=== PATIENT | female | born 1950 | race Caucasian/White ===

== ENCOUNTER → 2017-06-09 | Outpatient (CLI) | payer OTHER ==
[~2017-06-09] MED LIST: ABAT250V; ALBU90OI INH; ALBU90OI6 INH; ALBU90OI61 INH; ARIP10 PO; ATEN25 PO; ATEN50 PO; AZIT250 PO; Abilify5 MG PO; BONE DENSITY C1 EACH PO; BONE MEAL PO; Bactrim Ds Tab1 EACH PO; CALCIUM PO; CEPH500 PO; CLARITIN10 MG PO; CYCL10 PO; DIPATR PO; DULO30 PO; ENOX40I SC; ERGO400 PO; ERGO50000 PO; ETOD400 PO; FAMO20 PO; FLUO25TC TOP; FLUSAL2505 IH; FLUSAL2505 INH; GABA300 PO; GLUC500 PO; HYDACE5 PO; HYDACE5325 PO; HYDHCL10 PO; IMIP50 PO; LEVFLO500 PO; LISHYD1012 PO; LORA10 PO; LORA10ER PO; LORATADINE PO; MELO7.5 PO; MUPI2TC TOP; Magnesium500 M1 PO; Mobic15 MG PO; NAPR500 PO; NYST100SU MT; NYSTATIN PO; OXYACE5T PO; OXYB5 PO; Omeprazole20 M1 PO; PROM25 PO; RANI150; SALONPAS PATCH1 EACH TOP; SERT50 PO; VITAMIN D PO; VITAMIN D5000 UNIT PO; ZESTORETIC 20-121 EA PO; Zofran Odt8 MG SL
[2017-06-09 16:58] LABS: Creatinine, Urine Random 54.1 mg/dL (27.00-270.00); Protein, Urine Random 13.4 mg/dL (0.0-11.9)
== END | disposition home or self-care (01) ==
LOC: OLS 08:45
PROVIDERS: Internal Medicine
DX: E87.1 Hypo-osmolality and hyponatremia (principal)
CPT/HCPCS: 82570; 83935; 84156; 84300

== ENCOUNTER 2017-07-18 00:24 | Day surgery (SDC) | payer OTHER ==
[~2017-07-18 00:24] MED LIST changes: -Magnesium500 M1 PO
== END 2017-07-18 09:46 | disposition home or self-care (01) ==
LOC: ATC 00:24
DX: E87.1 Hypo-osmolality and hyponatremia (principal); E27.40 Unspecified adrenocortical insufficiency; I10 Essential (primary) hypertension; J45.909 Unspecified asthma, uncomplicated; F17.210 Nicotine dependence, cigarettes, uncomplicated
CPT/HCPCS: 36415; 80400; 82533; 96372; J0834

== ENCOUNTER 2018-06-22 12:48 | Inpatient (IN) | payer OTHER ==
[~2018-06-22] VITALS: Ht 170.2 cm; Wt 91.2 kg
[~2018-06-22 12:48] MED LIST changes: +Aspercreme 1035.4 GM TOP; +CHOL10002 PO; +Cyclobenzaprine5 MG PO; -ERGO400 PO; +FISH OIL 1,0001 EAC1 PO; +FOLI1 PO; +LISI20 PO; -LORATADINE PO; +Magnesium500 M1 PO; +NYST100000 SS; +POTASSIUM PO; +SALM50IP INH; +TRIA15CR3 TOP; +VITAMIN B122500 MC1 PO
[2018-06-22 13:22] LABS: BASOPHILS ABSOLUTE AUTO 0.08 K/mm3 (0.00-0.23); BASOPHILS PERCENT AUTO 0 % (0-2); Hematocrit 41.7 % (33.0-51.0); Hemoglobin 13.8 g/dL (11.5-16.0); LYMPHOCYTES ABSOLUTE AUTO 0.86 K/mm3 (0.84-5.20); LYMPHOCYTES PERCENT AUTO 4 % (21-46); MONOCYTES ABSOLUTE AUTO 0.56 K/mm3 (0.16-1.47); MONOCYTES PERCENT AUTO 3 % (4-13); Mean Corpuscular HGB 29.6 pg (26.0-34.0); Mean Corpuscular HGB Conc 33.1 g/dL (31.5-36.5); Mean Corpuscular Volume 90 fL (80-100); Mean Platelet Volume 9.8 fL (9.1-12.4); Platelet Count 445 K/mm3 (150-400); RDW Coefficient Variation 14.4 % (11.7-14.2); RDW Standard Deviation 47.5 fL (35.1-46.3); Red Blood Cell Count 4.66 M/mm3 (3.80-5.20); White Blood Cell Count 21.81 K/mm3 (4.00-11.30)
[2018-06-22 13:39] LABS: Alanine Aminotransfer (ALT/SGP 14 U/L (12-78); Albumin, Blood 2.2 g/dL (3.4-5.0); Albumin/Globulin Ratio 0.4 (0.8-1.8); Alk Phos 159 U/L (50-136); Anion Gap 10 mmol/L (6-16); Aspartate Aminotrans (AST/SGOT 15 U/L (12-37); Bilirubin, Total 0.6 mg/dL (0.1-1.0); Blood Urea Nitrogen 40 mg/dL (8-24); Bun/Creatinine Ratio 55.5 (12.0-20.0); CO2, Blood 25 mmol/L (21-32); Calcium, Blood 9.7 mg/dL (8.5-10.1); Chloride, Blood 100 mmol/L (98-108); Creatinine, Blood 0.72 mg/dL (0.40-1.00); Globulin, Blood 5.7 g/dL (2.2-4.0); Glomerular Filtration Rate >60 (60-); Glucose, Blood 137 mg/dL (70-99); Potassium, Blood 3.8 mmol/L (3.5-5.5); Sodium, Blood 135 mmol/L (136-145); Total Protein, Blood 7.9 g/dL (6.4-8.2)
[2018-06-22 14:22] LABS: EOSINOPHILS ABSOLUTE AUTO 0.01 K/mm3 (0.00-0.68); EOSINOPHILS PERCENT AUTO 0 % (0-6); IMMATURE GRAN ABSOLUTE AUTO 0.16 K/mm3 (0.00-0.10); IMMATURE GRAN PERCENT AUTO 1 % (0-1); NEUTROPHILS ABSOLUTE AUTO 20.14 K/mm3 (1.96-9.15); NEUTROPHILS PERCENT AUTO 92 % (41-73)
[2018-06-22 16:24] LABS: Source, Urine Clean Catch
[2018-06-22 16:38] LABS: Bilirubin, Urine Neg (Neg); Blood, Urine 3+ (Neg); Glucose Qualitative, Urine Neg (Neg); Ketones, Urine 3+ (Neg); Leukocyte Esterase, Urine Neg (Neg); Nitrite, Urine Neg (Neg); Protein, Urine 3+ (Neg); Urobilinogen, Urine 2+ (Normal)
[2018-06-22 16:54] LABS: U Amphetamine Screen DETECTED; U Barbituate Screen Not Detected; U Benzodiazapine Screen Not Detected; U Buprenorphine Screen Not Detected; U Cannabinoids Screen Not Detected; U Cocaine Screen Not Detected; U Methadone Screen Not Detected; U Methamphetamine Screen DETECTED; U Opiates Screen Not Detected; U Oxycodone Screen Not Detected; U Phencyclidine Screen Not Detected; U Propoxyphene Screen Not Detected
[2018-06-22 17:07] LABS: Color, Urine Amber (P-Yellow)
[2018-06-22 17:08] LABS: Appearance, Urine Clear (Clear)
[2018-06-22 17:09] LABS: Amorphous Mod (0-Heavy); Bacteria Mod /hpf; Mucus Mod (0-Heavy); Squamous Epithelial Cells Mod /hpf (Few); White Blood Cells, Urine 0-2 /hpf (0-5)
[2018-06-22 18:35] LABS: Thyroid Stimulating Hormone 0.56 uIU/mL (0.360-4.800)
[2018-06-22] MEDS ORDERED: ATEN25 PO (19:39)
[2018-06-22] MEDS ORDERED: Advil200 M1 PO (19:44)
[2018-06-22] MEDS ORDERED: Hydrocortiso453.6 G1 TOP (19:53)
[2018-06-22] MEDS ORDERED: KETO15TC TOP (19:54)
[2018-06-22] MEDS ORDERED: METF500 PO (19:55)
[2018-06-22] MEDS ORDERED: Bupropion Xl150 MG PO (19:56)
[2018-06-22 21:19] LABS: CPK Creatine Kinase 53 U/L (26-193); Creatine Kinase MB 2.4 ng/mL (0.0-3.6); Creatine Kinase MB Index 4.5 (0.0-4.0); Ethanol (Alcohol), Blood, Med <3 mg/dL; Troponin I 0.165 ng/mL (0.000-0.040)
--- NOTE | 2018-06-22 21:25 | NUR ---
PT ARRIVED TO ICU 15 FROM ER. PT IS UNRESPONSIVE. KIND OF GRUNTS TO STERNAL RUB. GAZE TO THE LEFT. PT GRUNTS WITH EXPIRATIONS WHICH GETS LONGER WITH EACH EXPIRATION THEN AFTER ABOUT 10 BREATHS PT WILL BECOME APNEIC FOR ABOUT 10 SECS. FROM THE REPORT I GOT FROM ER THIS IS NOT NEW FOR THE PT SINCE ARRIVING TO ER THIS AFTERNOON. PT DOES HAVE A GAG.
--- NOTE | 2018-06-22 22:05 | NUR ---
CALLED DR. MONTENEGRO TO INFORM HER OF IRREG RESP PATTERN, L GAZE, HTN, HR, SM RUN OF VTACH, LACTIC ACID OF 3.1. NEW ORDERS RECEIVED. FROM REPORT I GOT FROM ER IT DOES NOT SOUND LIKE HER MENTAL STATUS HAS CHANGED.
[2018-06-22 22:51] LABS: PO2 Arterial 83.5 mmHg (80-100); pH Blood Arterial 7.57 (7.35-7.45)
--- NOTE | 2018-06-23 00:34 | NUR ---
CALLED DR. RICHARDS ABOUT PT IRREGULAR RESP, HTN, RUNS OF VTACH, AND HR SUSTAINING 130'S-150'S. DR. RICHARDS CAME AND LOOKED AT PT AND ORDERED SOME KCL AND MG. DR. RICHARDS SAID TO KEEP BP ELEVATED FOR NOW UP TO 220 SBP BEFORE CALLING HIM FOR BP MEDS. HE WANTS PERMISIVE HTN BECAUSE THERE IS A CHANCE SHE HAD A STROKE. MRI IS TO BE DONE. WAS ABLE TO GET SOME HEALTH HX FROM SON TALI. THIS IS THE ONLY REACHABLE FAMILY MEMBER RIGHT NOW. THERE IS ANOTHER SON IN [place] THAT HAS NOT BEEN REACHABLE PER TALI.
[2018-06-23] MEDS ORDERED: CLOB.05TO TOP (02:41)
[2018-06-23 03:30] LABS: Hematocrit 38.7 % (33.0-51.0); Hemoglobin 12.7 g/dL (11.5-16.0); Mean Corpuscular HGB 29.5 pg (26.0-34.0); Mean Corpuscular HGB Conc 32.8 g/dL (31.5-36.5); Mean Corpuscular Volume 90 fL (80-100); Mean Platelet Volume 9.4 fL (9.1-12.4); Platelet Count 374 K/mm3 (150-400); RDW Coefficient Variation 14.5 % (11.7-14.2); RDW Standard Deviation 47.9 fL (35.1-46.3); White Blood Cell Count 20.22 K/mm3 (4.00-11.30)
[2018-06-23 03:52] LABS: Alanine Aminotransfer (ALT/SGP 15 U/L (12-78); Albumin, Blood 1.9 g/dL (3.4-5.0); Albumin/Globulin Ratio 0.4 (0.8-1.8); Alk Phos 151 U/L (50-136); Anion Gap 12 mmol/L (6-16); Aspartate Aminotrans (AST/SGOT 22 U/L (12-37); Bilirubin, Total 0.9 mg/dL (0.1-1.0); Blood Urea Nitrogen 32 mg/dL (8-24); Bun/Creatinine Ratio 59.4 (12.0-20.0); CHOL/HDL RATIO 11.7; CO2, Blood 20 mmol/L (21-32); Calcium, Blood 8.8 mg/dL (8.5-10.1); Chloride, Blood 105 mmol/L (98-108); Cholesterol 117 mg/dL (50-200); Creatinine, Blood 0.54 mg/dL (0.40-1.00); Glomerular Filtration Rate >60 (60-); Glucose, Blood 128 mg/dL (70-99); HDL Cholesterol 10 mg/dL (>39); LDL/HDL RATIO 7.2; Low Density Lipoprotein Chol 72 mg/dL (0-110); Magnesium, Blood 2.5 mg/dL (1.6-2.4); Phosphorus, Blood 1.8 mg/dL (2.5-4.9); Potassium, Blood 3.2 mmol/L (3.5-5.5); Sodium, Blood 137 mmol/L (136-145); Total Protein, Blood 6.9 g/dL (6.4-8.2); Triglycerides 177 mg/dL (30-160); Very Low Density Lipoprot Chol 35 mg/dL (6-32)
--- NOTE | 2018-06-23 05:50 | NUR ---
SUMMARY PT CONTINUES TO BE UNRESPONSIVE. GAZE TO THE LEFT. PT WILL BITE DOWN ON MOUTH SWAB AND FLINCHES WITH STERNAL RUB. CONTINUES WITH IRREG RESP WITH GRUNTING ON EXHALATION. GRUNTING GETS LONGER AND LONGER WITH EXHALE THEN PT BECOMES APNEIC ABOUT EVERY 10 BREATHS. SHE HAS DONE THIS SINCE ARRIVAL TO ICU AT 2124. CALLED TWO DIFFERENT HOSPITALISTS ABOUT CONCERNS DURING THE NIGHT. DR. RICHARDS CAME TO BEDSIDE TO EVAL PT. CALLED DR. RICHARDS AGAIN THIS AM TO INFORM HIM OF LOW POTASSIUM AND PHOS. KCL WAS NOT INFUSED WHEN THOSE LABS WERE DRAWN SO HE WANTS A REPEAT AT 0800 WHEN KCL HAS COMPLETED. NO ORDERS FOR PHOS. ALLOWING HTN AT THIS POINT PER DR. RICHARDS FOR POSSIBLE CVA SO METOPROLOL WAS PUT ON HOLD. HR CONTINUES TO BE 120'S-150'S. SPOKE WITH SON TALI ONCE DURING THE NIGHT AND HE SAID HE WILL MAKE ARRANGEMENTS TO COME SEE HIS MOM. THIS IS THE ONLY FAMILY I HAVE HEARD FROM [facility].
[2018-06-23 08:50] LABS: Anion Gap 10 mmol/L (6-16); Blood Urea Nitrogen 29 mg/dL (8-24); Bun/Creatinine Ratio 54.6 (12.0-20.0); CO2, Blood 20 mmol/L (21-32); Chloride, Blood 105 mmol/L (98-108); Creatinine, Blood 0.53 mg/dL (0.40-1.00); Glomerular Filtration Rate >60 (60-); Glucose, Blood 132 mg/dL (70-99); Potassium, Blood 3.6 mmol/L (3.5-5.5); Sodium, Blood 135 mmol/L (136-145)
--- NOTE | 2018-06-23 11:59 | NUR ---
Katarzyna is alone in room. She grunts with breaths and is not responsive to voice or touch. Her eyes are open and staring upwards to the left. Per chart, she is Restorationist, so I prayed for her at bedside. Also per ED RN notes, Katarzyna has a son and DIL out of state. They informed staff there is not blood family locally. I will remain available to pt and family.
--- NOTE | 2018-06-23 15:25 | NUR ---
TOOK PATIENT TO MRI FOR A MRI OF THE BRAIN. AWAITING MRI RESULTS.
--- NOTE | 2018-06-23 17:23 | NUR ---
NURSING SUMMARY LEFT SIDED GAZE WITH LEFT NECK/UPPER BODY HYPERTONIA, MOANS AND MAKES GRUNTING NOISES, DOES NOT FOLLOW COMMANDS, GROSS ARM AND LEG MOVEMENTS. IRREGULAR RESPPIRATIONS, RR 30'S, SATS REMAINING 96% AND GREATER ON ROOM AIR. SINUS TACHYCARDIA ON THE MONITOR, HR 110'S - 130'S, WITH PAC'S. HYPERTENSIVE. ATTENDS IN PLACE, INCONTINENT OF STOOL X 2, SMEARS. INCONTINENT OF URINE, OLMSTEAD IN PLACE WITH MILANA URINE, ADEQUATE OUTPUT. 1/2 NS INFUSING AT 75 ML/HR TO LEFT AC IV. PT ALSO HAS A RIGHT UPPER ARM SALINE LOCK. NPO, SPEECH THERAPY UNABLE TO PERFORM SWALLOW EVALUATION DUE TO PT NOT FOLLOWING COMMANDS. LEFT LEG REDNESS, PANNUS REDNESS, MULTIPLE BRUISES THROUGHOUT. MRI HEAD DONE, AWAITING RESULTS.
--- NOTE | 2018-06-23 17:36 | NUR ---
FAMILY/FRIEND CONTACT INFORMATION PATIENT HAS TWO SONS, KASHMIR BASILIO AND TALI. KASHMIR IS THE PRIMARY DECSION-MAKER ACCORDING TO TALI, PT'S SIGNIFICANT OTHER - SHARRI EDWARDS, AND HER FRIENDS HEATHER CHAVES AND ARODLO CANELA.KASHMIR AND TALI HAVING DISCUSSIONS ABOUT PT'S CODE STATUS. KASHMIR BASILIO - SON, CELL AND WORK , LIVES IN [place]; TALI - SON, CELL , LIVES IN [place]; SHARRI EDWARDS - SIGNIFICANT OTHER, CELL , LIVES WITH PATIENT; HEATHER CHAVES - NEIGHBOR AND FRIEND, CELL ; AROLDO CANELA - [facility] FRIEND, CELL
--- NOTE | 2018-06-23 17:42 | NUR ---
CONVERSATION WITH PATIENTS SON KASHMIR BASILIO RECEIVED A PHONE CALL FROM KASHMIR BASILIO, PATIENTS OLDEST SON AND DECISION-MAKER. HE LIVES IN [place] AND COULD COME TO [place] IF NEEDED. HE WOULD LIKE TO OBTAIN UPDATES ABOUT HIS MOTHER, TO KNOW WHAT IS GOING ON, SO THAT HE CAN MAKE DECISIONS TO WHETHER TO COME TO [place]. PROVIDED KASHMIR WITH UPDATES ON HIS MOTHER'S CURRENT CONDITION AND OBTAINED HEALTH ADMISSION HISTORY INFORMATION AND ANSWERED QUESTIONS ON THE MRI SCREENING FORM. KASHMIR STATED THAT HE IS WORRIED ABOUT HIS MOTHER'S BOYFRIEND, SHARRI, AND HIS DAUGHTER LIVING WITH HIS MOTHER, STATED, "THEY USE HER FOR HER HOUSE AND MONEY" AND "THEY USE DRUGS." KASHMIR STATED THE FAMILY HAS ATTEMPTED TO CONVINCE THEIR MOTHER TO KICK SHARRI AND HIS DAUGHTER OUT OF THE HOUSE. KASHMIR AND TALI, BROTHER, TO HAVE CONVERSATIONS ABOUT CODE STATUS. KASHMIR STATED THAT HIS BROTHER, TALI, LIVES IN [place] AND WILL LIKELY CALL US. I ADVISED THAT TALI HAD ALREADY CALLED AND WAS TRYING TO GET IN TOUCH WITH HIM BUT DIDN'T HAVE THE PHONE NUMBER. GAVE KASHMIR CESAR'S PHONE NUMBER PER TALI'S REQUEST.
--- NOTE | 2018-06-23 17:52 | NUR ---
CONVERSATION WITH PATIENT'S SON TALI CESAR CALLED TODAY TO CHECK ON HIS MOTHER. THE NIGHT RN TALKED WITH TALI LAST NIGHT TO OBTAIN SOME OF THE PATIENTS HEALTH CARE INFORMATION. TALI STATED THAT KSAHMIR WOULD KNOW MORE ABOUT THAT AND HE WOULD BE THE DECISION-MAKER SHOULD HIS MOTHER NOT BE ABLE TO MAKE HER OWN DECISIONS. TALI STATED HE HAS NOT BEEN ABLE TO GET IN TOUCH WITH HIS BROTHER, KASHMIR. HE ASKED THAT I GIVE KASHMIR HIS TELEPHONE NUMBER IF/WHEN HE CALLS. KASHMIR DID CALL AND TALI'S NUMBER WAS GIVEN TO HIM. TALI WAS TEARFUL ABOUT HIS MOTHER'S CONDITION AND STATED THAT "HER BOYFRIEND IS A PIECE OF SHIT." HE INDICATED THAT THE BOYFRIEND WAS TAKING ADVANTAGE OF HIS MOTHER AND HE HAS HIS DRUG ADDICT DAUGHTER LIVING IN HIS MOTHER'S HOME NOW. TALI STATED HE LAST SAW HIS MOTHER IN AUGUST OF 2017 AND OFTEN ATTEMPTED TO GET HER TO LEAVE THE BOYFRIEND AND MOVE TO [place] WITH HIM. TALI ALSO STATED THAT HIS "MOTHER IS A HYPERCONDRIAC AND WHEN SHE DOESN'T FEEL LIKE THEY PAY ENOUGH ATTENTION TO HER, SHE SHUTS DOWN." PER MY DISCUSSION WITH KASHMIR THIS AFTERNOON, HE HAS HAD THE OPPORTUNITY TO TALK WITH TALI ABOUT THEIR MOTHER AND THEY ARE DISCUSSING CODE STATUS AND POTENTIAL WAYS TO COME TO [place] WHEN/IF NEEDED.
--- NOTE | 2018-06-23 17:59 | NUR ---
CONVERSATION WITH SHARRI EDWARDS, SIGNIFICANT OTHER SHARRI EDWARDS, SIGNIFICANT OTHER, CAME TO BEDSIDE FOR A VISIT. HE STATED PT WAS NOT RESPONSIVE FOR ABOUT 24 HOURS BEFORE SHE WAS BROUGHT TO THE HOSPITAL. HE STATES THEIR NEIGHBOR, HEATHER CHAVES, CALLED EMS. SHARRI STATED HE WAS PICKING UP THE PHONE TO CALL EMS WHEN HEATHER DID IT INSTEAD. HE STATED HE WAS THERE WHEN EMS ARRIVED AT THE HOUSE BUT ALMOND BLANCHER RN ADVISED ME IN REPORT THAT EMS TOLD ED THAT NOBODY WAS AT THE HOME WHEN THEY ARRIVED. SHARRI STATED HE AND HIS DAUGHTER LIVE WITH THE PATIENT. HE STATED HIS DAUGHTER IS AN EX-DRUG ADDICT. HE DENIES USING METH, DENIES THAT THE PATIENT USES METH, AND DENIES THAT HIS DAUGHTER USES METH. PATIENT STAYED AT BEDSIDE FOR APPROX. 30 MINUTES.
--- NOTE | 2018-06-23 18:09 | NUR ---
CONVERSATION WITH AROLDO CANELA, PATIENT'S ORTHODOX FRIEND AROLDO CANELA AND ANOTHER ORTHODOX FRIEND CAME TO VISIT PATIENT TODAY. AROLDO STATED THERE "IS A PROBLEM WITH THE SIGNIFICANT OTHER DEMANDING PATIENT TO DO THINGS FOR HIM AND IS NOT ALWAYS NICE TO PATIENT."
--- NOTE | 2018-06-23 18:12 | NUR ---
DR. CUELLAR AT BEDSIDE FOR EVALUATION.
--- NOTE | 2018-06-23 19:13 | NUR ---
CALLED DR. CUELLAR TO REPORT THAT FRIENDS CAME TO VISIT PT AND STATED PT HAD THE FLU FOR ONE WEEK PRIOR TO ADMISSION WITH COMPLAINTS OF FALLING ASLEEP WHILE FRIENDS WERE TALKING WITH HER, SEVERE NECK AND BACK PAIN WHERE SHE COULD NOT MOVE, AND NAUSEA AND VOMITING. ALSO REPORTED THAT TOOL MAKER RN REPORTED TO ME THAT PT EXPERIENCED A SHORT RUN OF VFIB LAST NIGHT.
--- NOTE | 2018-06-23 23:30 | NUR ---
CARDIAC RHYTHM / DR. RICHARDS COMMUNICATION ANALYSIS OF VARIOUS RHYTHM STRIPS BY YOBANI SILVER RN AND THIS RN REVEALED POSSIBILITY OF PT CONVERTING IN AND OUT OF ATRIAL FIBRILLATION VERSES NORMAL SINUS RHYTHM WITH PAC'S AND PVC'S. HR RAPIDLY CHANGES FROM 90 TO 130'S-140'S AND BACK. P WAVES INCONSISTENT ON MONITOR. DR. RICHARDS UPDATED. REPEAT EKG ORDERED. DR. RICHARDS MENTIONED POSSIBLE REPEAT ECHO DEPENDING ON WHAT PRIMARY DAY SHIFT HOSPITALIST PREFERS. WILL DISCUSS WITH DAY SHIFT RN. DR. RICHARDS AWARE PT IS NOT CURRENTLY ANTICOAGULATED OTHER THAN DVT PROPHY LOVENOX. NO NEW ORDERS.
--- NOTE | 2018-06-24 03:19 | NUR ---
RESPIRATORY/CARDIAC PATTERN PT'S RESPIRATIONS CONTINUE TO BE IRREGULAR. PT ALTERNATES BETWEEN LOUD, GRUNTING, FREQUENT BREATHS TO QUIET, SLOW BREATHS. HR TO 130'S-140'S WITH INCREASED, GRUNTING BREATHS. HR 90'S WITH QUIET, SLOW BREATHS. PATTERN CYCLING CONSTANTLY THROUGHOUT NIGHT.
--- NOTE | 2018-06-24 03:21 | NUR ---
NEURO REASSESSMENT THIS MORNING PT INCREASINGLY RESPONSIVE. PT MOVING HEAD FROM LEFT TO RIGHT SPONTANEOUSLY, BUT DOES CONTINUE TO HAVE A SIGNIFICANT LEFT GAZE MOST TIMES. ARMS STIFF, NO RESPONSE TO PAIN ON ARMS. CONTINUES TO LIFT ARMS WITH STERNUM RUB. TOES POINT UP WHEN TOUCHED ON BOTTOM. DURING ORAL CARE, PT CLOSES MOUTH. INCREASED HEART RATE WITH STIMULATION.
[2018-06-24 03:23] LABS: BASOPHILS ABSOLUTE AUTO 0.05 K/mm3 (0.00-0.23); BASOPHILS PERCENT AUTO 0 % (0-2); EOSINOPHILS ABSOLUTE AUTO 0.11 K/mm3 (0.00-0.68); EOSINOPHILS PERCENT AUTO 1 % (0-6); Hematocrit 37.5 % (33.0-51.0); Hemoglobin 12.1 g/dL (11.5-16.0); IMMATURE GRAN ABSOLUTE AUTO 0.19 K/mm3 (0.00-0.10); IMMATURE GRAN PERCENT AUTO 1 % (0-1); LYMPHOCYTES ABSOLUTE AUTO 2.24 K/mm3 (0.84-5.20); LYMPHOCYTES PERCENT AUTO 14 % (21-46); MONOCYTES ABSOLUTE AUTO 1.77 K/mm3 (0.16-1.47); MONOCYTES PERCENT AUTO 11 % (4-13); Mean Corpuscular HGB 29.2 pg (26.0-34.0); Mean Corpuscular HGB Conc 32.3 g/dL (31.5-36.5); Mean Corpuscular Volume 90 fL (80-100); Mean Platelet Volume 9.7 fL (9.1-12.4); NEUTROPHILS ABSOLUTE AUTO 12.25 K/mm3 (1.96-9.15); NEUTROPHILS PERCENT AUTO 74 % (41-73); Platelet Count 338 K/mm3 (150-400); RDW Coefficient Variation 14.7 % (11.7-14.2); RDW Standard Deviation 49.3 fL (35.1-46.3); Red Blood Cell Count 4.15 M/mm3 (3.80-5.20); White Blood Cell Count 16.61 K/mm3 (4.00-11.30)
[2018-06-24 03:41] LABS: Anion Gap 11 mmol/L (6-16); Blood Urea Nitrogen 26 mg/dL (8-24); Bun/Creatinine Ratio 52.1 (12.0-20.0); CO2, Blood 20 mmol/L (21-32); Calcium, Blood 8.6 mg/dL (8.5-10.1); Chloride, Blood 107 mmol/L (98-108); Glomerular Filtration Rate >60 (60-); Glucose, Blood 118 mg/dL (70-99); Magnesium, Blood 1.6 mg/dL (1.6-2.4); Sodium, Blood 138 mmol/L (136-145)
[2018-06-24 04:51] LABS: PCO2 Arterial 31.4 mmHg (35-45); PO2 Arterial 75.8 mmHg (80-100); pH Blood Arterial 7.46 (7.35-7.45)
--- NOTE | 2018-06-24 05:00 | NUR ---
HEART RATE - METOPROLOL ADMIN HR CONSISTENTLY IN 130'S-140'S, TOUCHING INTO THE 150'S AND 160'S. METOPROLOL ADMIN. AFTER ADMINISTRATION, PT'S HR RETURNED TO PREVIOUSLY DISCUSSED RESPIRATORY/CARDIAC TREND WITH HIGH RATE IN 120'S-130'S. BP CONTINUES TO BE MILDLY ELEVATED.
--- NOTE | 2018-06-24 06:28 | NUR ---
RING REMOVAL PT'S ARMS NOTED TO BE INCREASINGLY SWOLLEN. RINGS ON FINGERS REQUIRING REMOVAL TO PREVENT CUTTING OFF OF CIRCULATION. REMOVAL OF RINGS DIFFICULT REQUIRING MULTIPLE ATTEMPTS BY MULTIPLE RN'S. SEVERAL ABRASIONS NOTED ON FINGERS FROM REMOVAL. BANDAGES PLACED. SEVEN RINGS PLACED IN DENTURE CUP AND PLACED INSIDE PT'S BELONGING BAG WITH HER CLOTHES.
--- NOTE | 2018-06-24 06:48 | NUR ---
SUMMARY SINCE PREVIOUS NOTE, PT CONTINUES TO BE INCREASINGLY ALERT. PT DEMONSTRATING PERIODS WHERE EYES ARE MORE CLOSED AND PT APPEARS TO BE RESTING, AND WITH STIMULATION PT OPENS EYES AND HAS INCREASED GROSS MOVEMENT. CONTINUES TO HAVE SIGNIFICANT LEFT GAZE AND STIFFNESS IN NECK FACING THE LEFT SIDE. WHEN REMOVING RINGS PT WITHDRAWING TO PAIN ON BILAT HANDS. PT CONTINUES WITH RESPIRATORY AND CARDIAC PATTERNS. BP STABLE. PT AFEBRILE. DECREASED URINE OUTPUT THIS SHIFT. KCL INFUSING FOR LOW POTASSIUM THIS MORNING.
--- NOTE | 2018-06-24 07:45 | NUR ---
ASSUMED CARE: PT RESTING IN BED, EYES OPEN, UNRESPONSIVE. BREATHING PATTERN IRREGULAR, MOAN NOTED WITH BREATHS. VSS, TACHYCARDIC IN 120S. NO FURTHER NEEDS AT THIS TIME.
--- NOTE | 2018-06-24 08:08 | NUR ---
NEURO ASSESSMENT REVEALS IRREGULAR BREATHING, MOVES EXTREMITIES WHEN STIMULATED BUT DOES NOT FOLLOW COMMANDS. FEET FLEX WHEN BABINSKI TESTED BUT TOES DO NOT MOVE. PT DOES NOT TRACK WITH EYES BUT STARES OFF, DOES NOT RESPOND WITH NAME OR FOLLOW DIRECTIONS.
--- NOTE | 2018-06-24 08:53 | NUR ---
REPOSITIONED PT. WITH STIMULATION PT BEGAN MOANING MORE OFTEN AND IS NOW INTERMITTENTLY RAISING LEFT ARM IN THE AIR BUT NOT FOLLOW DIRECTIONS; WILL NOT SQUEEZE FINGERS WHEN INSTRUACTED
--- NOTE | 2018-06-24 09:17 | NUR ---
SPOKE WITH PALLIATIVE CARE NURSE MARCUS REGARDING PT'S CURRENT STATUS AND CLINICAL PICTURE. NUMBERS OF FAMILY MEMBERS AND S.O. PROVIDED TO HER FOR DISCUSSIONS ON DECISION MAKING.
--- NOTE | 2018-06-24 10:52 | NUR ---
PALLIATIVE CARE NURSE DISCUSSED PT'S CASE WITH PT'S SONS. ONE SON ON THE WAY FROM [facility]. SONS HAVE INSTRUCTED US NOT TO GIVE INFO TO PT'S S.O. PT HAS BEEN MADE DNR PER FAMILY WISHES. GENERAL MANAGER ORACLE DATA CLOUD AWARE
--- NOTE | 2018-06-24 11:13 | NUR ---
CORRECT CONTACT #'S. OLDEST SON, KASHMIR SAMUEL [phone], SON, TALI SAMUEL AND ISAIAS GIANG - [phone] [place] [phone] SONS REQUEST THAT NO INFORMATION BE PROVIDED TO SO SHARRI UMANA SUMMARY OF ASSESSMENT, MULTIPLE CONVERSATIONS WITH TWO SONS, , RN AND PT ADVOCATE. After dialing #'s listed on chart and finding many disconnected or wrong I was able to reach oldest son, Kashmir, who is in [place]. He is very concerned about his mom and states he and his brother Tali will make themselves available for any decision making or assist as needed. Brother Tali is on his way to the [facility] from [place] and expected here this afternoon. I discussed at [facility] pt's current status and our concerns in wanting to identify a family spokesperson/decision maker and to review her code status today. After conversations with questions answered, Kashmir states he and his brother have spoken and agree that pt should be a DNR. This was relayed to Dr Sandoval and orders obtained/entered for DNR status. Once Tali is here and is able to ask additional questions we will discuss further advanced care issues. I had left a message for son, Tali and received a call back from his , Miriam hightower with a second # that may have better corporate receptionist during their travels. I was able to reach younger son, Tali on that number, posted above. Tali concurrs with his brother re: DNR status. I answered his questions re: his mom's current status. I explained [place] law and [place] policy regarding decision makers for pt's when they are unable to speak for themselves. Tali asks that we not provide information to pt's SO Sharri Umana. He had questions re: who to contact for assist with taking care of his mom's affairs if she remains incapacitated. I discussed this [facility] PT advocate and reivewed CM notes re: APS referral and APD involvement. I will provide additional info to Tali when he arrives. He expects to be here between 2-4 pm today. I let him know Dr would also like to meet with him. RN will notify me when they arrive. Assessment. Pt has eyes open but is nonverbal and unresponsive to verbal or tactile stimuli. She does not appear comfortable but there is no specific indicator of localized or generalized pain. Full update on current status obtained from pt's RN and
--- NOTE | 2018-06-24 11:37 | NUR ---
VAISHNAVI RUTH FROM [facility], [facility] CAME TO ASSESS PT. DAHIANA WAS PROVIDED FOR REFERENCE. AGENT WAS GIVEN PHONE NUMBER OF NEIGHBOR WHO CALLED EMS AND PT'S SON'S NUMBER WELL CHART NOTES.
--- NOTE | 2018-06-24 12:02 | NUR ---
DR CUELLAR IN TO SEE PT. NOTES VITAL SIGNS INCLUDING BP. STATES TO TREAT BP GREATER THAN 190 SBP AND HR GREATER THAN 130S. STATES HE WANTS TO BE NOTIFIED WHEN FAMILY ARRIVES AND IS GOING TO DISCUSS CASE WITH RADIOLOGY TO DETERMINE WHAT CAN BE VIEWED ON SCANS.
--- NOTE | 2018-06-24 14:26 | NUR ---
CALL TO DR CUELLAR BECAUSE PT'S HR IN 140S, NOT RESPONSIVE TO METOPROLOL, BP ELEVATED IN 180S-190S. RR IN 40S-50S. PT ALSO MOANING WITH THIS. ORDER FOR PAIN MEDS RECIEVED. WILL NOTIFY AND PALLIATIVE CARE WHEN FAMILY ARRIVES. CLINIC ASSISTANT AWARE
--- NOTE | 2018-06-24 16:13 | NUR ---
PT'S SON, DAUGHTER IN LAW, DOCTOR ALISA, AND PALLIATIVE CARE NURSE ARE AT BEDSIDE AT THIS TIME.
--- NOTE | 2018-06-24 16:24 | NUR ---
PT'S DAUGHTER IN LAW HAS RINGS THAT WERE REMOVED PER FORESTRY INSTRUCTOR LAST NIGHT
--- NOTE | 2018-06-24 16:55 | NUR ---
Extended Family meeting with , Son-ISAIAS Shine-Miriam. RN also in/out of room towards end of meeting. After meeting with Rl called his brother, Elbert and put him on speaker phone and I repeated the information provided to family and answered questions of all three family members. Current plan, which Dr and family agreed upon is to give Katarzyna another 24 hours of supportive care in the hopes that she will become more awake and responsive. Family is realistic and understand that 's prognosis of 10% chance of regaining baseline function leaves her condition quite quarded. They do not want her life prolonged if she is not improving. Pt is displaying more discomfort and distress than she was this am and has ordered IV MS, which RN gave with good results in alleviating her grunting, groaning with respirations, grimacing and generally looking distressed and painful. This also lowered her HR. explained supportive care being provided and confirmed DNR status. SonElbert is getting the first available plane from [place] to be here to see his mom and assist his brother. Family also asked to identify who would be allowed information and visits. At this time only pt's two sons and Miriam hightower are to be allowed access to visit or information. RN put this in the chart and informed other staff. I passed this on to . Cezar were given [facility] ph#, Card with Senior Financial Reporting Analyst contact from and number for non-emergent [place] Iron [employer]ter's office to request assist with access to pt's home. Information on hotels nearby for lodging provided also. Cezar will be in town until Friday and possibly longer if needed. Palliative care to follow daily for s/s management and assist with advanced care planning as indicated. Family very appreciative of the support and information received today. They expressed feeling shocked and overwhelmed with all the complicating layers of circumstances surrounding pt's current condition. Son has spoken with an program/music director from [employer]D/APS this afternoon. Son appropriately tearful and grieving. He and are problem solving with Elbert's participation also. They appear very healthy in their interactions and very supportive of each other among the three family members.
--- NOTE | 2018-06-24 17:33 | NUR ---
SHIFT SUMMARY: PT'S SON AND DAUGHTER IN LAW AT BEDSIDE. FAMILY HAD MEETING WITH DR CUELLAR AND PALLIATIVE CARE NURSE AND DETERMINED THEY WOULD GIVE HER SUPPORTIVE CARE FOR AT LEAST 1 MORE DAY TO DETERMINE PROGRESS THEN POSSIBLY COMFORT CARE IF NO PROGRESS. LOWER IN SUPERVISOR AWARE. PT HAS BEEN MEDICATED WITH MORPHINE AND APPEARS TO BE MORE COMFORTABLE. RESPIRATIONS IRREGULAR AND PT STILL NOT FOLLOWING INSTRUCTIONS. EYES REMAIN OPEN, NO BLINKING, LUBRICATING EYE DROPS APPLIED. NO FURTHER NEEDS AT THIS TIME. CALL LIGHT IN REACH AND FAMILY AWARE OF HOW TO USE IT
--- NOTE | 2018-06-24 19:15 | NUR ---
ASSUMING CARE OF PT AT THIS TIME. PT REPORT RECEIVED AT BEDSIDE WITH OFFGOING NURSE, ARIELA LLAMAS. PT LAYING IN BED UPON ENTERING THE ROOM. VS STABLE - SEE VS FS. PT DOES NOT APPEAR TO BE IN DISTRESS AT THIS TIME. WILL REVIEW PLAN OF CARE.
--- NOTE | 2018-06-24 19:30 | NUR ---
ASSESSMENT PT RESPONDS TO PAINFUL STIMULI, OPENS EYES TO PAINFUL STIMULI, MOANS, LOCALIZES PAIN, NONVERBAL, NOT FOLLOWING COMMANDS, NOT ANSWERING QUESTIONS. SLUGGISH PUPILS, 2 MM, GAZE LEFT, NO TRACKING WITH EYES. BALAJI SENSATION. PT WINN. GROSS, WEAK MOVMENT OF EXTREMETIES. S/SX OF PAIN/DISCOMFORT NOTED. MEDICATED WITH MORPHINE PER PHYSICIAN'S ORDER / UTILIZE NONPHARM METHODS. LUNGS CLEAR, LOWER LOBES DIMINISHED. GRUNTING, IRREGULAR, SHALLOW BREATHING. PT ON RA. OXY SAT >95%. RR 20'S. NO COUGHING. AFEBRILE. ST. HR 110'S. BP STABLE - SEE VS FS. STRONG PULSES. EDEMA NOTED. WARM, PINK SKIN EXCEPT RED, HOT SKIN LLE. HYPOACTIVE BT X4 QUADRANTS. ABD SOFT, NONTENDER (NO FACIAL GRIMACING WITH PALPATION), MILD DIST. NO N/V. NO BM. NPO. F/C: DARK, YELLOW URINE NOTED. PIV X2. LR AT 125 ML/HR.
[2018-06-25 03:34] LABS: BASOPHILS ABSOLUTE AUTO 0.07 K/mm3 (0.00-0.23); BASOPHILS PERCENT AUTO 1 % (0-2); EOSINOPHILS PERCENT AUTO 2 % (0-6); Hematocrit 39.1 % (33.0-51.0); Hemoglobin 12.5 g/dL (11.5-16.0); Mean Corpuscular HGB 29.5 pg (26.0-34.0); Mean Corpuscular Volume 92 fL (80-100); Mean Platelet Volume 10.1 fL (9.1-12.4); Platelet Count 327 K/mm3 (150-400); RDW Coefficient Variation 15.1 % (11.7-14.2); RDW Standard Deviation 51.1 fL (35.1-46.3); Red Blood Cell Count 4.24 M/mm3 (3.80-5.20); White Blood Cell Count 13.83 K/mm3 (4.00-11.30)
[2018-06-25 03:39] LABS: IMMATURE GRAN ABSOLUTE AUTO 0.28 K/mm3 (0.00-0.10); IMMATURE GRAN PERCENT AUTO 2 % (0-1); LYMPHOCYTES ABSOLUTE AUTO 2.93 K/mm3 (0.84-5.20); LYMPHOCYTES PERCENT AUTO 21 % (21-46); MONOCYTES ABSOLUTE AUTO 1.42 K/mm3 (0.16-1.47); MONOCYTES PERCENT AUTO 10 % (4-13); NEUTROPHILS ABSOLUTE AUTO 8.83 K/mm3 (1.96-9.15); NEUTROPHILS PERCENT AUTO 64 % (41-73)
[2018-06-25 03:58] LABS: Anion Gap 8 mmol/L (6-16); Blood Urea Nitrogen 23 mg/dL (8-24); Bun/Creatinine Ratio 43.7 (12.0-20.0); CO2, Blood 24 mmol/L (21-32); Calcium, Blood 8.4 mg/dL (8.5-10.1); Chloride, Blood 107 mmol/L (98-108); Creatinine, Blood 0.53 mg/dL (0.40-1.00); Free Thyroxine 1.07 ng/dL (0.70-1.60); Glomerular Filtration Rate >60 (60-); Glucose, Blood 111 mg/dL (70-99); Magnesium, Blood 1.5 mg/dL (1.6-2.4); Phosphorus, Blood 2.4 mg/dL (2.5-4.9); Potassium, Blood 4.3 mmol/L (3.5-5.5); Sodium, Blood 139 mmol/L (136-145)
[2018-06-25 04:00] LABS: Triiodothyronine, Free 0.82 pg/mL (2.18-3.98)
--- NOTE | 2018-06-25 05:15 | NUR ---
SHIFT ASSESSMENT NO ACUTE CHANGES NOTED T/O SHIFT. PT RESPONDS TO PAINFUL STIMULI, OPENS EYES TO PAINFUL STIMULI, MOANS, LOCALIZES PAIN, NONVERBAL, NOT FOLLOWING COMMANDS, NOT ANSWERING QUESTIONS. SLUGGISH PUPILS, 2 MM, EYES MOVEMENT, EYES DON'T MOVE TOWARDS VOICE. BALAJI SENSATION. PT WINN. GROSS, WEAK MOVEMENT OF EXTREMETIES. MORE MOVEMENT ON R SIDE THAN L SIDE. OCC S/SX OF PAIN/DISCOMFORT NOTED. CONT TO ASSESS FOR PAIN/DISCOMFORT AND MEDICATE WITH MORPHINE PER PHYSICIAN'S ORDER / UTILIZE NONPHARM METHODS. LUNGS CLEAR, LOWER LOBES DIMINISHED. GRUNTING, IRREGULAR, SHALLOW BREATHING. PT ON RA. OXY SAT >90%. RR 20'S. NO COUGHING. AFEBRILE. SR TO ST. HR 90'S TO 130'S. BP STABLE - SEE VS FS. STRONG PULSES. WARM, PINK SKIN EXCEPT RED, HOT SKIN LLE. EDEMA NOTED. HYPOACTIVE BT X4 QUADRANTS. ABD SOFT, NONTENDER (NO FACIAL GRIMACING WITH PALPATION), MILD DIST. NO N/V. NO BM. NPO. F/C: DARK, YELLOW URINE NOTED. PIV X2. LR AT 125 ML/HR. WILL CONT TO MONITOR PT AND WILL PROVIDE BEDSIDE REPORT TO ONCOMING NURSE THIS AM.
--- NOTE | 2018-06-25 05:20 | NUR ---
DR. RICHARDS CALLED DR. RICHARDS AT THIS TIME. INFORMED DR. RICHARDS OF AM LABS. DR. RICHARDS DOES NOT WANT TO REPLACE PHOS. DR. RICHARDS ORDERED MAG SULFATE 2G. WAITING FOR MEDICATION FROM PHARMACY AT THIS TIME.
--- NOTE | 2018-06-25 07:20 | NUR ---
ASSUMED CARE: PT RESTING QUIETLY. APPEARS TO BE COMFORTABLE AT THIS TIME. NO FURTHER NEEDS OR CONCERNS NOTED
--- NOTE | 2018-06-25 08:30 | NUR ---
UPON DOING STERNAL RUB AND SAYING PT'S NAME PT TURNED TO THE LEFT AND LOOKED AT THIS RN. SHE ALSO MOANED AT THE SAME TIME AND SOUNDED LIKE "HUH." DOES NOT FOLLOW COMMANDS
--- NOTE | 2018-06-25 10:51 | NUR ---
PT'S FAMILY AT BEDSIDE, ASKING ABOUT RESOURCES FOR PLANNING WITH PT'S EXPENSES AND LIVING SITUATION. SPOKE WITH PT ADVOCATE REGARDING THIS AND SHE STATES SHE WILL SPEAK FURTHER WITH DISCHARGE PLANNING. IN THE MEAN TIME FAMILY WAS INSTRUCTED TO SPEAK WITH THE [employer] HOME [employer] AIDE ON THE CASE AND THE RESOURCE THAT JOSE WICK PROVIDED YESTERDAY. NO FURTHER NEEDS AT THIS TIME.
--- NOTE | 2018-06-25 18:07 | NUR ---
SHIFT SUMMARY: PT HAS BEEN MEDICATED TWICE WITH MORPHINE AND ONCE WITH METOPROLOL THIS SHIFT. HR HAS BEEN IN 1TEENS MOST OF THE SHIFT. BPS HAVE REMAINED ELEVATED. FAMILY VISITED THIS AM. REPORT TO PCU NURSE OCTAVIO FUNK. FAMILY CALLED AND NOTIFIED OF TRANSFER
--- NOTE | 2018-06-25 19:15 | NUR ---
ASSESSMENT PT OPENS EYES TO PAINFUL STIMULI, BUT DOES NOT FOLLOW COMMANDS. GROSS MOTOR MOVEMENT NOTED TO HANDS. PT NOT MOVING LEGS OR SQUEEZING HANDS. NO TRACKING NOTED. SON TALI AND DAUGHTER IN LAW RAHAT CAME INTO ROOM. NO RESPONSE FROM PT NOTED. SON TRIED TO GET PT TO RESPOND TO VOICE AND TOUCH. SON THAN ASKED ABOUT COMFORT CARE VS. DNR. EXPLAINED DIFFERENCE. SON STATED," MY BROTHER KASHMIR AND I WOULD LIKE HER TO BE COMFORT CARE". EXPLAINED THAT IT COULD TAKE WEEKS FOR PT TO PASS AWAY, TALI EXPRESS UNDERSTANDING. CALL TO HOSPITALIST KIKE REGARDING STATUS, PALLIATIVE CARE NURSE LILI TO TALK WITH FAMILY TONIGHT REGARDING WISHES.
--- NOTE | 2018-06-25 19:23 | NUR ---
TRANSFER OF CARE Assumed care of pt upon arrival to unit at 1828. Report recieved from Zamzam LLAMAS. Pt transferred from ICU bed to PCU bed with slider sheet. Report given to oncoming FARHAD Madera.
--- NOTE | 2018-06-25 20:42 | NUR ---
COMFORT CARE LILI FROM PALLIATIVE CARE TALKED WITH SON TALI AND DAUGHTER IN LAW RAHAT REGARDING THIER WISHES TO CHANGE PT TO COMFORT CARE. LILI SPOKE WITH HOSPITALIST KIKE ABOUT FAMILY WISHES. PT TO BE CHANGED TO MED STATUS COMFORT CARE. FAMILY REQUESTED THAT PT BE MADE CONFIDENTAL, DONE. OBTAINED PASSWORD FROM SON AND EXPLAINED CONFIDENTAL.
--- NOTE | 2018-06-25 20:45 | NUR ---
Pt visit this evening. Received call from Dustin charge nurse for PCU. Anneliese reports family would like to discuss placing Pt on comfort care. Spoke with Pt's nurse Cassy and she reports educating family on the possibility of Pt still being able to make a recovery. She reports family verbalises understanding but still wish to make her comfort care. Pt is resting in bed and appears comfortable. She does not respond when addressing her verbally. Pt's son Rl and his Miriam are present. They request to have discussion outside of Pt's room. Escorted family to palliative care office. Engaged in conversation regarding goals of care. Listened as family expresses frustrations and concerns. Rl states "I know my mother and she would not want to be in this situation and would not want to be in a vegatative state". Educated Rl and Miriam on comfort care philosophy with V/U made by Rl. Listened as Rl expressed concerns about the Pt's boyfriend and boyfriend's daughter doing drugs and having questionable traffic in and out of the house. Suggested placement and hospice and Rl is agreeable if he is able to obtain financial help to obtain guardianship to place Pt in a higher level of care. He reports that he can not afford the cost of an attourny for guardianship. Rl states that he would like Pt to be placed on comfort care and Pt's other son Kwaku is in agreement. Rl would also like Pt to be placed as a confidential Pt. Rl completed a POLST form and chose DNR, comfort measures only, and no artificial nutrition by tube. Rl reports no other concerns at this time. Spoke with Pt's nurse Cassy and she is agreeable with plan. Spoke with hositalist Ronny Benitez and he reports that he will place the comfort measure orders and medical floor status. Plan: Placed hospice referral per V/O from Ronny. Pt will be placed on comfort care and medical floor status. Pt's nurse Cassy will place Pt as confidential and give son password for Pt. Will remain available for symptom management.
--- NOTE | 2018-06-25 21:52 | NUR ---
REPORT GIVEN TO VON LLAMAS
--- NOTE | 2018-06-25 21:53 | NUR ---
Assumed care of patient at approx 2150, report recieved from Cassy LLAMAS.
--- NOTE | 2018-06-26 02:38 | NUR ---
COMFORT CARE: ORDER RECIEVED AT APPROX 2250 06/25/18, PATIENT NONVERBAL WITH SPORATIC MOANS. DECORTICATE POSTURING, STERNAL RUB RESULTS IN OPENING OF EYES, NO TRACKING NOTED, GAZE LEFT. REFLEXIVE WEAK MOVEMENT BUT NO MOVEMENT TO COMMANDS. COMFORT CARE ONLY ORDERS NOW IN PLACE, POSSIBLE REASSESMENT IN AM BY
--- NOTE | 2018-06-26 06:01 | NUR ---
SHIFT SUMMARY: PATIENTS HAS AUDIBLE WET LUNG SOUNDS WITHOUT AUSCULTATION, RIGHT ARM IS WEEPING CLEAR FLUID AND BUE EDEMATOUS. MD MADE AWARE, IVF STOPPED AND ORDERS RECIEVED UNTIL HOSPITALIST CAN ADDRESS SITUATION. TURNING PATIENT EVERY 2 HOURS AND CARING FOR WOUNDS, ORAL CARE DONE EVERY 4 HOURS AND SUCTION AT BEDSIDE AND SET UP.
--- NOTE | 2018-06-26 08:51 | NUR ---
BEGINNING OF SHIFT Assumed care at 0700. Report received from Agueda LLAMAS. Pt on room air. Comfort care at this time. No family at bedside since start of shift. Pt is confidential. Oral care performed. Pt constantly has open mouth. Half-dollar size cast removed from mouth, as well as 4 dime-sized casts. Pt has weeping edema to RUE. This RN loosely wrapped extremity in kerlex and placed extremity on supra-absorbant pad. Pt closed mouth around suction catheter during oral care. Gag reflex noted during oral care.
--- NOTE | 2018-06-26 12:41 | NUR ---
UPDATE Family at bedside. Update given by this RN. Family asks if the pt has had any visitors. This RN explains the process that occurs when a pt is confidential and visitors do not provide a password. The family states that they are okay with the patient having visitors, including the pt's boyfriend and other friends. They state that they do not want any information regarding the pt's health provided to other visitors, however.
--- NOTE | 2018-06-26 15:45 | NUR ---
TRANSFER Pt transferred to room 331. Telephone report given to Zainab LLAMAS. Pt transferred from PCU bed to medical bed using slider sheet and 5 staff. This RN called pt's son to notify him of transfer. Chart, belongings, and medications transferred with patient.
--- NOTE | 2018-06-26 15:52 | NUR ---
PATIENT TRANFERRED FROM PCU. NON RESPONSIVE , CC. NO FAMILY PRESENT. NO SS OF DISTRESS NOTED.
--- NOTE | 2018-06-27 05:03 | NUR ---
SHIFT SUMMARY PT TRACKS SOME WITH HER EYES BUT OTHERWISE NON RESPONSIVE. REMAINED IN BED THROUGHOUT THE NIGHT. OLMSTEAD PATENT AND DRAINING. RUE EDEMATOUS AND WEEPING. DRESSING CHANGED THIS AM. PT REPOSITIONED NEEDED. MOANED FOR A SHORT PERIOD, MEDICATED X 1 W/ 10 MG ROXANOL, OTHERWISE APPEARED COMFORTABLE THROUGHOUT THE NIGHT. NO ACUTE CHANGES THIS EVENING.
--- NOTE | 2018-06-27 09:33 | NUR ---
PT LYING IN BED; NO RESPONSE FROM PATIENT WHILE CHECKING RIGHT ARM DRSG. UNLABORED BREATHING. EYES OPENED AND TRACKING AT TIMES PUPILS SLUGGISH BUT REACTIVE.
--- NOTE | 2018-06-27 09:54 | NUR ---
CHANGE IN MENTAL STATUS PT ABLE TO ANSWER YES NO QUESTIONS AND STATE FULL NAME AND . RECOGNIZED FAMILY IN ROOM. UNABLE TO RESPOND TO QUESTION "WHERE ARE YOU?" BUT MUMBLES IN ATTEMPT TO ANSWER. PERRLA BUT SLUGGISH. MINIMALLY WINN. DENIES PAIN AT THIS TIME. DR. CUELLAR AWARE AND SPEAKING TO FAMILY; NEW ORDERS RECEIVED.
--- NOTE | 2018-06-27 12:00 | NUR ---
PT ABLE TO STATE NAME AND DATE OF . SIGNIFICANT WEAKNESS BUT WINN X4. ABLE TO FOLLOW SOME SIMPLE COMMANDS. NOW RESTING WITH EYES CLOSED, OPENS EYES SPONTANEOUSLY AT TIMES. PT DENIES PAIN. APPEARS DISTANT AND DROWSY. TURNED Q2 OFF BONY PROMINENCES. OLMSTEAD DRAINING CLEAR YELLOW URINE.
--- NOTE | 2018-06-27 12:20 | NUR ---
Pt visit this AM. Received report from Pt's nurse Thi this AM. Pt is awake and appears to have improved. Pt is A&Ox1 and denies pain at this time. When speaking with Pt she responds in 2 word difficult to understand conversation. When asked about comfort Pt responds yes and no. Pt denies pain and dyspnea at this time. Pt appears comfortable with a FLACC score of 0/10. Spoke with Dr Sandoval this AM before visiting with Pt. He reports we will have a better idea on Pt's recovery in the next day or 2. Will remain available.
--- NOTE | 2018-06-27 14:32 | NUR ---
REDRESSED RIGHT ARM. EDEMA WITH WEEPING NOTED. APPEARS TO BE IMPROVING.
--- NOTE | 2018-06-27 16:14 | NUR ---
PT OPENS EYES SPONTANEOUSLY TO SOUND BUT HAS NOT RESPONDED VERBALLY IN PAST SEVERAL HOURS. FAMILY AND FRIEND TO VISIT. RR EVEN AND UNLABORED. APPEARS IN NO ACUTE DISTRESS. REMAINS ON COMFORT CARE WITH LR INFUSING AT THIS TIME.
--- NOTE | 2018-06-27 18:03 | NUR ---
PT REMAINS ABLE TO STATE NAME AND DATE OF . FOLLOWS SIMPLE COMMANDS. OPENS EYES WITH LIGHT TOUCH AND SOUND.
--- NOTE | 2018-06-27 18:10 | NUR ---
SHIFT SUMMARY PT RESPONDING TO SIMPLE COMMANDS AND ABLE TO STATE NAME AND AND RECOGNIZE FAMILY IN ROOM. IV FLUIDS INFUSING. OLMSTEAD IN PLACE. TURNED Q2 THROUGHOUT SHIFT MAXIMUM ASSIST. FAILED SWALLOW EVAL TODAY. SOCIAL SERVICE CONSULT PLACED PER FAMILY REQUEST FOR POA INFORMATION. PRN IV BP MED FOR HYPERTENSION AND GIVEN TODAY.
--- NOTE | 2018-06-27 21:37 | NUR ---
BLOOD GLUCOSE PT'S BLOOD GLUCOSE AT 2100 WAS 74. PT SCHEDULED TO HAVE 20 UNITS LANTUS AND 7 UNITS OF NOVOLOG BASED ON A 5 TO 1 RATIO WITH CARB COUNTING AND TUBE FEEDING. CALLED DR. SHANNON TO NOTIFY ABOUT CBG. DR. SHANNON ORDERED TO ONLY GIVE 5 UNITS NOVOLOG RIGHT BEFORE TUBE FEEDING THEN TO CHECK CBG AGAIN AT 2200. IF CBG IS BELOW 100 TO GIVE HIM A CALL AGAIN TO DISCUSS HOW MUCH LANTUS TO GIVE. IF CBG IS GREATER THAN 100 TO GIVE 10 UNITS LANTUS AND RECHECK CBG AT 0200.
--- NOTE | 2018-06-28 04:56 | NUR ---
SHIFT SUMMARY PT MUCH MORE ALERT THIS SHIFT INTERMITTENTLY. SLEPT WELL MUCH OF THE SHIFT WELL. OCCASSIONALLY WHEN WOKEN PT ASKING SIMPLE QUESTIONS OR MAKING SIMPLE STATEMENTS. ABLE TO STATE NAME. UNSURE OF WHERE SHE IS OR WHAT IS GOING ON BUT OVERALL CONTINUES TO IMPROVE. ATTEMPTED ORAL CARE SEVERAL TIMES, PT RESISTANT. NO BM THIS SHIFT. OLMSTEAD IN PLACE, PATENT AND DRAINING. DECENT OUTPUT. BLOOD PRESSURE AND HEART RATE REMAIN ELEVATED BUT STABLE. TURNED PT Q 2 HOURS. RUE CONTINUES TO WEEP. DRESSING CHANGED X 1 THIS SHIFT. PT RESTING IN BED AT THIS TIME. DENIED PAIN THROUGHOUT THE NIGHT. WILL CONTINUE TO MONITOR.
[2018-06-28 05:13] LABS: BASOPHILS ABSOLUTE AUTO 0.07 K/mm3 (0.00-0.23); BASOPHILS PERCENT AUTO 0 % (0-2); EOSINOPHILS ABSOLUTE AUTO 0.21 K/mm3 (0.00-0.68); EOSINOPHILS PERCENT AUTO 1 % (0-6); Hematocrit 36.2 % (33.0-51.0); Hemoglobin 11.7 g/dL (11.5-16.0); IMMATURE GRAN ABSOLUTE AUTO 0.21 K/mm3 (0.00-0.10); IMMATURE GRAN PERCENT AUTO 1 % (0-1); LYMPHOCYTES ABSOLUTE AUTO 3.15 K/mm3 (0.84-5.20); LYMPHOCYTES PERCENT AUTO 19 % (21-46); MONOCYTES PERCENT AUTO 5 % (4-13); Mean Corpuscular HGB 29.7 pg (26.0-34.0); Mean Corpuscular HGB Conc 32.3 g/dL (31.5-36.5); Mean Corpuscular Volume 92 fL (80-100); NEUTROPHILS PERCENT AUTO 73 % (41-73); Platelet Count 450 K/mm3 (150-400); RDW Standard Deviation 49.8 fL (35.1-46.3); Red Blood Cell Count 3.94 M/mm3 (3.80-5.20); White Blood Cell Count 16.84 K/mm3 (4.00-11.30)
[2018-06-28 05:53] LABS: Anion Gap 9 mmol/L (6-16); Blood Urea Nitrogen 15 mg/dL (8-24); Bun/Creatinine Ratio 34.8 (12.0-20.0); CO2, Blood 23 mmol/L (21-32); Calcium, Blood 8.2 mg/dL (8.5-10.1); Chloride, Blood 105 mmol/L (98-108); Creatinine, Blood 0.43 mg/dL (0.40-1.00); Glomerular Filtration Rate >60 (60-); Glucose, Blood 110 mg/dL (70-99); Potassium, Blood 3.5 mmol/L (3.5-5.5); Sodium, Blood 137 mmol/L (136-145)
--- NOTE | 2018-06-28 08:26 | NUR ---
COMFORT CARE PT ALERT AND ORIENTED TO SELF. SAYS NAME, AND ANSWERED YES OR NO QUESTIONS. PT SPEAKING TO 3-[address] CUELLAR AT BEDSIDE. PT RESTING IN BED, REPOSITIONING FOR COMFORT. PT SHAKES HAD NO WHEN ASKED IF IN PAIN. ELEVATED RESP RATE NOTED, LS CLEAR, DIM IN BASES. PT HR ELAVATED, REGULAR. NOTIFIED DR CUELLAR, TO PLACE ORDERS. BS HYPOACTIVE X4 QUAD. PPP X4. WILL CONTINUE TO MONITOR.
--- NOTE | 2018-06-28 10:53 | NUR ---
COMFORT CARE PT RESTING IN BED. RESPIRATIONS CONTINUE TO BE TACHYPNIC. PT STARTED ON IV ANCEF. WILL CONTINUE TO MONITOR.
--- NOTE | 2018-06-28 11:30 | NUR ---
COMFORT CARE PT CONTINUES TO ANSWER YES AND NO QUESTIONS AND SPEAK 1-2 WORDS. PT APPEARS TO BE RESTING ON ENTRY TO ROOM, WAKES TO VERBAL STIMULI. PT STARTED ON MAG SULFATE IV. DECREASE LR RATE TO 50ML/HR PER ORDERS. PT EDUCATRED ON DOBHAUFF PLACEMENT AND INTENDED USE AND AGREES TO PLACEMENT. NG TUBE PLACED, PT TOLERATED WELL. 1V CHEST XRAY ORDERED PER PROTOCOL TO VERIFY PLACEMENT. WILL CONTINUE TO MONITOR.
--- NOTE | 2018-06-28 11:43 | NUR ---
Pt visit this AM. Pt had feeding tube placed shortly before arrival. When speaking with Pt and asking questions, she responds in difficult to understand 1 to 2 word sentences. FLACC score is 2/10 due to occasional restlessness. Pt does not answer orientation questions or pain questions. Spoke with Pt's nurse Carole and she reports Dr Sandoval had discussion with family regarding treatment and supportive measures. Family has agreed to tube feeding for a few days to determine if Pt's swallowing will improve. Carole expressed concerns regarding Pt's advanced directive. Only one witness signature is on AD. Instructed Carole this question may need to be deferred to palliative care nurse Nivia. Plan is to remain available for therapeutic visits and symptom management.
--- NOTE | 2018-06-28 13:28 | NUR ---
LATE ENTRY - [address] CUELLAR OF TELE EVENT OF 29 BEAT RUN OF VTACH AND PENDING USE OF NG TUBE FOR CHEST XRAY TO VERIFY PLACEMENT AND CURRENT VS. NO NEW TELEPHONE ORDER. NOTIFIED DR CUELLAR THAT IMAGING NOT AVAILABLE OF NOW, NEW TELEPHONE ORDERS FOR METOPROLOL 5MG IV NOW ENTERED. CLARIFIED ORDER FOR ADDITIONAL MAG SULFATE, CONTINUE WITH ADMINISTRATION. WILL CONTINUE TO MONTIOR.
--- NOTE | 2018-06-28 13:40 | NUR ---
TELE AT SIN[facility] TACH AT 120. ADMINISTERED IV LOPRESSOR PER ORDERS. AND IV MAG SULFATE. AWATING CHEST XRAY TO START TUBE FEEDING.
--- NOTE | 2018-06-28 15:30 | NUR ---
COMFORT CARE PT RESTING IN BED, APPEARS TO BE SLEEPING. PT RESPONDS TO VERBAL STIMULI AND SPEECH IN UNCLEAR. DENIES PAIN. CHEST XRAY VERIFIES PALCEMENT, NEW ORDERS PER DR CUELLAR TO MOVE FORWARD PER TUBE MEDICATIONS AND TUBE FEEDING. TUBE FEEDING STARTED AT 25ML/HR PT APPEARS TO BE TOLERATING WELL. RUE WOUND CLEANED AND DRESSING CHANGED. WILL CONTINUE TO MONITOR
--- NOTE | 2018-06-28 18:23 | NUR ---
SHIFT SUMMARY FRIEND/FAMILY AT BEDSIDE THIS EVENING. PT REPORTS NEEDING TO HAVE A BM, PT HAD MEDIUM SOFT BM IN ATTENDS, PLACED ON BEDPAN, NO ADDITION OUTPUT. PT REPOSITION FOR COMFORT DURING SHIFT. A&O TO SELF AND FAMILY THIS AM AND [place], THIS AFTERNOON, PT APPEARS TO BE SLEEPING, RESPONDING TO VERBAL STIMULI. BREATHING TACHYPNEIC THIS AM, RESPIRATION DECREASED T/O SHIFT, >92% ON RA. PT DENIES PAIN DURING SHIFT. DOBHOFF PLACED PER ORDERS, CHEST XRAY VERIFIED PLACEMENT, STARTED TUBE FEEDING PER ORDERS, PT APPEARS TO BE TOLERATING WELL, NO COMPLAINTS OF N/V. RESIDUAL PRIOR TO TUBE FEEDING STARTING OF 40ML, FLUSHED WITH 30 ML WATER AND STARTED TUBE FEEDING. PT STARTED ON IV ANTIBIOTICS AND IV MAG SULFATE. ELEVATED BP AND HR NOTED, MEDICATED PER EMAR. OTHER VSS. NO OTHER ACUTE CHANGES NOTED DURING SHIFT. WILL CONTINUE TO MONITOR UNTIL REPORT GIVNE TO ONCOMING RN.
--- NOTE | 2018-06-28 23:23 | NUR ---
ZERO RESIDUAL WITH CHECK. PT TOLERATING TUBE FEEDING WELL. INCREASED RATE FROM 25 ML/HR TO 45 ML/HR. WILL CONTINUE TO MONITOR.
--- NOTE | 2018-06-29 04:28 | NUR ---
SHIFT SUMMARY PT CONTINUES TO IMPROVE IN MENTATION. ANSWERS QUESTIONS APPROPRIATELY AND PLEASANTLY CONVERSATES WITH SHORT SENTENCES. PT REQUESTING SODA AND FOOD THIS EVENING. EXPLAINED TUBE FEEDINGS TO PT AND EDUCATED HER ON WHY SHE COULD NOT DRINK ANYTHING UNTIL SPEECH THERAPY COULD REEVALUATE. PT APPEARED TO UNDERSTAND. RENZO WELOPEZ, DRESSING CHANGED X 1 THIS SHIFT. TURNED PT IN BED FREQUENTLY, PT APPEARS PAINFUL WITH TURNING BUT DENIES PAIN ONCE SETTLED. RESTING IN BED. HEART RATE REMAINS ELEVATED BUT OTHERWISE VSS. WILL CONTINUE TO MONITOR.
[2018-06-29 05:01] LABS: BASOPHILS ABSOLUTE AUTO 0.06 K/mm3 (0.00-0.23); BASOPHILS PERCENT AUTO 1 % (0-2); EOSINOPHILS ABSOLUTE AUTO 0.29 K/mm3 (0.00-0.68); EOSINOPHILS PERCENT AUTO 2 % (0-6); Hematocrit 34.1 % (33.0-51.0); Hemoglobin 11.1 g/dL (11.5-16.0); IMMATURE GRAN ABSOLUTE AUTO 0.08 K/mm3 (0.00-0.10); IMMATURE GRAN PERCENT AUTO 1 % (0-1); LYMPHOCYTES ABSOLUTE AUTO 2.52 K/mm3 (0.84-5.20); LYMPHOCYTES PERCENT AUTO 20 % (21-46); MONOCYTES ABSOLUTE AUTO 0.66 K/mm3 (0.16-1.47); MONOCYTES PERCENT AUTO 5 % (4-13); Mean Corpuscular HGB 29.7 pg (26.0-34.0); Mean Corpuscular HGB Conc 32.6 g/dL (31.5-36.5); Mean Corpuscular Volume 91 fL (80-100); Mean Platelet Volume 9.7 fL (9.1-12.4); NEUTROPHILS ABSOLUTE AUTO 9.26 K/mm3 (1.96-9.15); NEUTROPHILS PERCENT AUTO 72 % (41-73); Platelet Count 446 K/mm3 (150-400); RDW Standard Deviation 49.4 fL (35.1-46.3); Red Blood Cell Count 3.74 M/mm3 (3.80-5.20); White Blood Cell Count 12.87 K/mm3 (4.00-11.30)
[2018-06-29 05:03] LABS: Base Excess Venous 5.8 mmol/L; Bicarbonate Venous 29.8 mmol/L (24.0-30.0); PCO2 Venous 31.6 mmHg (38-42); PO2 Venous 138 mmHg (38-42); pH Blood Venous 7.56 (7.34-7.37)
[2018-06-29 05:17] LABS: International Normalized Ratio 1.3; Prothrombin Time Results 13.5 Sec (9.7-11.5)
[2018-06-29 05:28] LABS: Alanine Aminotransfer (ALT/SGP 10 U/L (12-78); Albumin, Blood 1.6 g/dL (3.4-5.0); Albumin/Globulin Ratio 0.3 (0.8-1.8); Alk Phos 96 U/L (50-136); Anion Gap 8 mmol/L (6-16); Aspartate Aminotrans (AST/SGOT 18 U/L (12-37); Bilirubin, Total 0.6 mg/dL (0.1-1.0); Blood Urea Nitrogen 18 mg/dL (8-24); Bun/Creatinine Ratio 42.1 (12.0-20.0); CO2, Blood 26 mmol/L (21-32); Chloride, Blood 104 mmol/L (98-108); Creatinine, Blood 0.43 mg/dL (0.40-1.00); Globulin, Blood 4.7 g/dL (2.2-4.0); Glomerular Filtration Rate >60 (60-); Glucose, Blood 137 mg/dL (70-99); Phosphorus, Blood 2.4 mg/dL (2.5-4.9); Potassium, Blood 3.3 mmol/L (3.5-5.5); Sodium, Blood 138 mmol/L (136-145); Total Protein, Blood 6.3 g/dL (6.4-8.2)
--- NOTE | 2018-06-29 13:30 | NUR ---
TUBE FEED NO RESIDUAL NOTED, RUNNING AT 45ML HR, RATE ADVANCED TO 55ML HR. WILL MONITOR
--- NOTE | 2018-06-29 16:02 | NUR ---
Katarzyna smiles easily and engaged well in conversation. That said, she is confused as to why she is hospitalized. She did not recall her son being here and she does not remember what happend at home. None of this appears to bother her. However, she tells me what she wants more than anything is to eat. She has dobhoff for feeding and is NPO. She was unable to understand this either. I provided assurance of care and God's attention. We prayed together at conclusion of visit. I will remain available.
--- NOTE | 2018-06-29 18:24 | NUR ---
PT AWAKE, ALERT AND CONVERSING WITH STAFF, PT IS PLEASANT AND COOPERATIVE. SOME CONFUSION NOTED. DUBHOFF WITH CONTINUOUS FEEDS IN PLACE. ADVANCING TOWARD GOAL RATE OF 65. SEE ORDERS. COMFORT CARE STATUS DISCONTINUED. NO C/O PAIN TODAY. WILL CONTINUE TO MONITOR AND REPORT TO ONCOMING RN
--- NOTE | 2018-06-29 20:13 | NUR ---
Met with patient this morning, She was able to track some conversation then drifts off. review of care with nursing. called son to review her care needs and prognosis. Her son had many questions about what was wrong with her review of notes and diagnositics and current treatment. Had discussion of stopping comfort care and giving some treatment. Review of prognosis, and possble trajectory of her care. Son is comforteable with some nutrition and treatment and to see response. If she cannot swallow or declines or has repeat infections he understands transioning back to comfort. Review of care with hospitaist and speech eval ordered and curative care orders placed by physician. Son given our phone number for supportive care in decision making. son states restricions on visitors ok just not medical information to friends.
--- NOTE | 2018-06-30 03:38 | NUR ---
SHIFT SUMMARY PT ADMITTED FOR AMS. VBG PH OF 7.56. DNR BUT NO LONGER CC. NPO WITH NG TUBE-GLUCERNA 1.2 CONTINUOUS WITH A GOAL RATE OF 65 MLS/HR AND A TOTAL VOLUME OF 1560 WITH HAS BEEN MET WITH RESIDUAL CHECKS BETWEEN 5-10 MLS. UP IN CHAIR DAILY TOLLERATED IN RECLINER CHAIR WITH MECH LIFT WITH FULL SLING. HOB AT 45 DEGREES. CATHETER. CBG Q 6 UNTIL STEADY AT 70-180 MG/DL. TELE-NSR AT A RATE OF 98 PER WRINGER OPERATOR. FLUSH NG TUBE WITH 30 MLS WATER Q 4 HRS. 18G IV TO L UPPER ARM. MEDS CRUSHED VIA NG TUBE. ONLY TO GIVE INFORMATION TO CHILDREN WITH A CODE WORD OF LADY BUG PER REPORT. PT WAS FOUND DOWN AT HOME AFTER 2 DAYS AND WAS UNRESPONSIVE FROM A POSSIBLE DRUG OVERDOSE PER REPORT. THE PT HAS BEEN AWAKE PERIODICALLY THROUGHOUT THE SHIFT AND IS ALERT AND ORIENTED TO SELF, , AND SAID "I DON'T THINK I'M IN THE HOSPITAL" WHICH SHE WAS REDIRECTED. PT DOES APPEAR TO BE COFUSED AND DOES HAVE SOME SONSENSICAL VERBAGE BUT IS ABLE TO COMMUNICATE SOME NEEDS. FREQUENT VISUAL CHECKS PT DOES NOT APPEAR TO USE CALL LIGHT. PT HAS BEEN A VIEW SCORE OF BETWEEN A 3-5 SO FAR THIS SHIFT. MD CONTACTED AND MEDS ADMINISTERED PER EMAR TO REDUCE FROM 5 TO 4 AND NOW TO 3. NO APPARENT SIGNS OF ACUTE DISTRESS SO FAR THIS SHIFT. WILL CONTINUE TO MONITOR.
--- NOTE | 2018-06-30 18:54 | NUR ---
SHIFT SUMMARY PT AWAKENS TO NAME AND CHATS WITH STAFF. FORGETS WHERE SHE IS. STATED JORGE THIS MORNING WITH NO PROMPTING BUT THOUGHT BELLO THIS AFTERNOON. GENERALIZED EDEMA NOTED TO BODY. OLMSTEAD REMOVED THIS EVENING AND TOLERATED PROCEDURE WELL. FED SMALL AMOUNTS SHE TOLERATED AND NO S/S OF ASPIRATION NOTED. DOZING WHEN NOT WORKING WITH PT. TURNED AND ORAL CARE GIVEN THROUGH DAY.
[2018-07-01 05:29] LABS: BASOPHILS ABSOLUTE AUTO 0.05 K/mm3 (0.00-0.23); BASOPHILS PERCENT AUTO 1 % (0-2); EOSINOPHILS ABSOLUTE AUTO 0.34 K/mm3 (0.00-0.68); EOSINOPHILS PERCENT AUTO 4 % (0-6); Hematocrit 33.7 % (33.0-51.0); Hemoglobin 10.7 g/dL (11.5-16.0); IMMATURE GRAN ABSOLUTE AUTO 0.04 K/mm3 (0.00-0.10); IMMATURE GRAN PERCENT AUTO 1 % (0-1); LYMPHOCYTES ABSOLUTE AUTO 1.95 K/mm3 (0.84-5.20); LYMPHOCYTES PERCENT AUTO 23 % (21-46); MONOCYTES ABSOLUTE AUTO 0.61 K/mm3 (0.16-1.47); MONOCYTES PERCENT AUTO 7 % (4-13); Mean Corpuscular HGB 29.6 pg (26.0-34.0); Mean Corpuscular HGB Conc 31.8 g/dL (31.5-36.5); Mean Corpuscular Volume 93 fL (80-100); Mean Platelet Volume 10.3 fL (9.1-12.4); NEUTROPHILS ABSOLUTE AUTO 5.53 K/mm3 (1.96-9.15); NEUTROPHILS PERCENT AUTO 65 % (41-73); Platelet Count 556 K/mm3 (150-400); RDW Coefficient Variation 15.4 % (11.7-14.2); RDW Standard Deviation 51.8 fL (35.1-46.3); Red Blood Cell Count 3.62 M/mm3 (3.80-5.20); White Blood Cell Count 8.52 K/mm3 (4.00-11.30)
[2018-07-01 06:15] LABS: Albumin, Blood 1.8 g/dL (3.4-5.0); Anion Gap 4 mmol/L (6-16); Blood Urea Nitrogen 20 mg/dL (8-24); Bun/Creatinine Ratio 46.1 (12.0-20.0); CO2, Blood 30 mmol/L (21-32); Calcium, Blood 8.5 mg/dL (8.5-10.1); Chloride, Blood 103 mmol/L (98-108); Creatinine, Blood 0.43 mg/dL (0.40-1.00); Glomerular Filtration Rate >60 (60-); Glucose, Blood 132 mg/dL (70-99); Phosphorus, Blood 3.3 mg/dL (2.5-4.9); Sodium, Blood 137 mmol/L (136-145)
--- NOTE | 2018-07-01 07:48 | NUR ---
on antibiotics. PT ALERT AND ABLE TO STATE MONTH AND YEAR. DID NOT USE CALL GUZMAN. PT HAD NO URINE OUTPUT USED BEDPAUN X 2 WITH NO REULTS. BLADDER SCANNED FOR 84 ML URINE IN BLADDER 10 HOURS AFTER OLMSTEAD WAS DC. HAD TOLERATED TUBE FEED WITHOUT PROBLEMS WITH HOB UP 45 DEGRESS UNTIL ROUNDING At shift change and pt had emisis mod amt and suctioned to prevent aspiration. did not give any keturah fluids can have puree with hob up 90 degrees with nectar thick fluids with spoon. DNR status.
--- NOTE | 2018-07-01 17:28 | NUR ---
SUMMARY PT CURRENTLY SITTING UP IN THE RECLINER AT THE BEDSIDE, FIRST THING THIS MORNING, PT WAS FOUND TO BE VOMITING, TUBE FEEDING PLACED ON HOLD, DR VERMA NOTIFIED, TUBE FEED DC'D, DOBHOFF TO REMAIN IN PLACE, SPOKE WITH BOTH THE [facility] AND THE SPEECH THERAPIST, PT STARTED ON A PUREED DIET, MEDS STILL GIVEN VIA DOBHOFF, PT/OT CONT TO WORK WITH THE PT, SHE HAS BEEN PLEASANT AND COOPERATIVE WITH CARE, PLEASANTLY CONFUSED, VSS, NO ACUTE CHANGES, WILL CONT TO MONITOR
--- NOTE | 2018-07-02 05:49 | NUR ---
SHIFT SUMMARY PT IS A 68 Y/O FEMALE, ADMITTED FOR AN ALTERED MENTAL STATE. SHE HAS BEEN ALERT THROUGH THE NIGHT, ORIENTED TO SELF AND PLACE, BUT NOT TO DATE OR TIME. SHE DENIED ANY COMPLAINTS OF PAIN, NAUSEA OR SOB AND DOZED OFF AND ON THROUGH THE NIGHT. VITALS REMAINED STABLE, THOUGH HER HEART RATE REMAINED TACHY IN THE 100-110S. NO OTHER ACUTE CHANGES IN PT CONDITION NOTED. WILL CONTINUE TO MONITOR AND TREAT PER EMAR.
--- NOTE | 2018-07-02 17:14 | NUR ---
SUMMARY PT BACK TO BED AFTER SITTING UP IN THE RECLINER FOR SEVERAL HOURS, USES THE OVERHEAD LIFT TO GET THE PT UP, PT/OT HAS WORKED WITH HER, PT ABLE TO STAND BRIEFLY, DOBHOFF REMAINS IN PLACE FOR MEDS, PT WITH POOR APPETITE, PT REMAINS CONFUSED AT TIMES, PLEASANT AND COOPERATIVE WITH CARE, VSS, NO ACUTE CHANGES, WILL CONT TO MONITOR
--- NOTE | 2018-07-03 06:21 | NUR ---
SHIFT SUMMARY PT IS A 68 Y/O FEMALE, ADMITTED FOR ALTERED MENTAL STATUS. SHE IS PLEASANTLY CONFUSED, A&O X SELF AND FAMILY ONLY. SHE DENIED ANY COMPLAINTS OF PAIN, NAUSEA OR SOB DURING THE NIGHT. THE PT STILL HAS A DOBHOFF, AND IS RECEIVING MEDS THROUGH THE TUBE. THE PT'S BP HAS BEEN ELEVATED DURING THE NIGHT IN THE 150-160S SYSTOLICALLY, WITH AN ELEVATED HEART RATE IN THE 100-110S. ALL OTHER VITALS STABLE. NO OTHER ACUTE CHANGES IN PT CONDITION NOTED. WILL CONTINUE TO MONITOR AND TREAT PER EMAR UNTIL HAND OFF TO DAY SHIFT.
--- NOTE | 2018-07-03 11:31 | NUR ---
PT NG TUBE REMOVED INTACT, PT TOLERATED WELL.
--- NOTE | 2018-07-03 16:49 | NUR ---
SHIFT SUMMARY PATIENT PLEASANTLY CONFUSED. AWAITING PLACEMENT AT THIS TIME. SHE WAS A 1-2 PERSON ASSIST TO THE BEDSIDE COMMODE, DID VERY WELL. MOVED UP TO THE CHAIR FOR MEALS TODAY AND HAS HAD A VERY PLEASANT DISPOSITION.
[2018-07-04 05:03] LABS: Hematocrit 41.3 % (33.0-51.0); Hemoglobin 13.5 g/dL (11.5-16.0); Mean Corpuscular HGB 29.9 pg (26.0-34.0); Mean Corpuscular HGB Conc 32.7 g/dL (31.5-36.5); Mean Corpuscular Volume 92 fL (80-100); Mean Platelet Volume 9.9 fL (9.1-12.4); Platelet Count 716 K/mm3 (150-400); RDW Coefficient Variation 15.1 % (11.7-14.2); RDW Standard Deviation 49.8 fL (35.1-46.3); Red Blood Cell Count 4.51 M/mm3 (3.80-5.20)
[2018-07-04 05:23] LABS: Anion Gap 9 mmol/L (6-16); Blood Urea Nitrogen 19 mg/dL (8-24); Bun/Creatinine Ratio 42.7 (12.0-20.0); CO2, Blood 26 mmol/L (21-32); Chloride, Blood 99 mmol/L (98-108); Creatinine, Blood 0.45 mg/dL (0.40-1.00); Glomerular Filtration Rate >60 (60-); Glucose, Blood 113 mg/dL (70-99); Potassium, Blood 4.3 mmol/L (3.5-5.5); Sodium, Blood 134 mmol/L (136-145)
--- NOTE | 2018-07-04 07:08 | NUR ---
tele, room air, call light in reach, saline locked, walking rounds completed with returning day staff
--- NOTE | 2018-07-04 18:46 | NUR ---
SHIFT SUMMARY PATIENT STILL HAVING CLEAR THOUGHTS. 1PA.
--- NOTE | 2018-07-05 04:15 | NUR ---
NOC SHIFT SUMMARY PT HAS BEEN PLEASANT AND COOPERATIVE WITH CARE THIS NIGHT. VSS. SHE BEGAN THE NIGHT UP IN HER CHAIR THEN TRANSFERED TO THE BED WERE SHE HAS SLEPT FOR MOST OF NIGHT. TELE SHOWS SR. NO ACUTE OCCURENCES THIS NIGHT PT HAS MOSTLY SLEPT. MARIOLY APPEARS IN NO ACUTE DISTRESS. WILL CONTINUE TO MONITOR.
--- NOTE | 2018-07-05 19:10 | NUR ---
SHIFT SUMMARY 68 YR OLD FEMALE ADMITTED WITH ALTERED MENTAL STATE. DNR. TELEMETRY DC'D TODAY. PT IS ON THIN LIQUIDS/PUREE/ADA DIET. CRUSH MEDS W/APPLESAUCE. ROOM AIR. HX: PTSD, CELLULITIS (LOWER LEFT LEG), HTN. PT AWAITING PLACEMENT IN A SNF. IV LFT UPPER ARM 18 IS SALINE LOCKED. LUNGS ARE DIM. PT IS A&O X2-3. NO REMARKABLE CHANGES THROUGHOUT SHIFT.
--- NOTE | 2018-07-06 07:17 | NUR ---
NOC SHIFT SUMMARY PT HAS BEEN PLEASANT AND COOPERATIVE WITH CARE THIS NIGHT. WAS IN ROOM TO VISIT EARLY IN THE EVENING BUT LEFT BEFORE SHE WENT TO SLEEP. PT HAS BEEN ALERT TO FAMILY, LOCATION, SELF, AND HAS BEEN RESPONDING APROPRIATELY TO STAFF. NO ACUTE CHANGES NOTED THIS NIGHT. SLEPT MOST OF NIGHT RESTFULLY. APPEARS IN NO ACUTE DISTRESS. REPORT TO ONCOMING RN.
--- NOTE | 2018-07-06 18:02 | NUR ---
NO ACUTE CHANGES THIS SHIFT. PATIENT CHANGED TO MECHANICAL SOFT DIET AND IS TOLERATING WELL. PATIENT DENIES ANY PAIN OR DISCOMFORT THIS SHIFT. ZOFRAN GIVEN X1 THIS AM FOR NAUSEA AFTER BREAKFAST WITH STATED RELIEF. 20G IV TO L AC WNL AND SL. DRESSING TO SKIN TEARS ON R ARM REMAIN C/D/I. PATIENT UP TO CHAIR FOR MEALS. TRANSFER WITH FWW AND 1 ASSIST. CALLS APPROPRIATELY FOR ASSISTANCE. FALL PRECAUTIONS IN PLACE PER UNIT PROTOCOL.
--- NOTE | 2018-07-07 05:12 | NUR ---
Shift summary: Pt has slept well most of shift with no c/o discomfort. pt has been alert, oriented and appropriate, and cooperative with cares this pm. Vitals stable. pt awaitng placement at SNF.
--- NOTE | 2018-07-07 18:39 | NUR ---
PATIENT UP TO CHAIR FOR MEALS THIS SHIFT, TOLERATING MECHANICAL SOFT DIET AND EATING WELL. 20G IV TO L AC WNL AND SL. DENIES ANY PAIN OR DISCOMFORT. VSS THIS SHIFT. NO ACUTE CHANGES, AWAITING PLACEMENT AT A SNF.
--- NOTE | 2018-07-08 07:34 | NUR ---
SHIFT SUMMARY PT ALERT, ORIENTED TO SELF, PLACE AND SITUATION; CHRONIC BACK PAIN MANGED PER EMAR; K-PAD AT BEDSIDE. REDNESS TO LLE; LLE ELEVATED. PT REPOSITIONED SELF IN BED; ASSIST PRN. RA; DENIES SOB, CP AND NAUSEA. MED DELIVERY AND ASPIRATION PRECAUTIONS. 1 SBA AND FWW TO BSC. BED ALARM AND SIDE RAILS FOR SAFETY. CALL LIGHT IN REACH; PT DEMONSTRATES USE. REPORT GIVEN TO DAY SHIFT RN.
--- NOTE | 2018-07-08 15:23 | NUR ---
DISCHARGE PATIENT DISCHARGED TO [facility] VIA WHEELCHAIR TRANSPORT. PACKET AND POLST WITH SIGNAL INTELLIGENCE/ELECTRONIC WARFARE. IV REMOVED WITHOUT DIFFICULTY. BELONGINGS WITH PATIENT. REPORT CALLED TO [facility] NURSE.
== END 2018-07-08 15:06 | DRG 871 ==
LOC: ER 12:48 → ICUW 20:50 → PCU 20:50 → MEDS 20:50 → PCU 20:50 → ICUW 20:56 → PCU 06-25 18:15 → MEDS 06-26 15:18 → ENPENDDIS 07-07 12:52 → EDPENDDIS 07-07 12:52 → MEDS 07-08 15:06
PROVIDERS: Emergency Medicine; Family Medicine; Hospitalist; Internal Medicine; ADMIT Internal Medicine
DX: A41.9 Sepsis, unspecified organism (principal); G92 Toxic encephalopathy; R40.20 Unspecified coma; J84.9 Interstitial pulmonary disease, unspecified; L03.116 Cellulitis of left lower limb; G93.1 Anoxic brain damage, not elsewhere classified; I47.2 Ventricular tachycardia; K21.9 Gastro-esophageal reflux disease without esophagitis; I10 Essential (primary) hypertension; Z66 Do not resuscitate; F41.9 Anxiety disorder, unspecified; F17.210 Nicotine dependence, cigarettes, uncomplicated; F43.10 Post-traumatic stress disorder, unspecified; M79.7 Fibromyalgia; F44.81 Dissociative identity disorder; R32 Unspecified urinary incontinence; E66.9 Obesity, unspecified; Z68.29 Body mass index [BMI] 29.0-29.9, adult; Z96.652 Presence of left artificial knee joint; I16.0 Hypertensive urgency; E86.0 Dehydration; R65.20 Severe sepsis without septic shock; M54.9 Dorsalgia, unspecified; G89.29 Other chronic pain; F15.10 Other stimulant abuse, uncomplicated; E11.9 Type 2 diabetes mellitus without complications
CPT/HCPCS: 36415; 36600; 51702; 51703; 70450; 70551; 71045; 80048; 80053; 80061; 80069; 81001; 82550; 82553; 82803; 82947; 83605; 83735; 84100; 84439; 84443; 84481; 84484; 85025; 85027; 85610; 87040; 92526; 92610; 93005; 93010; 93971; 94640; 94760; 96361; 96374; 96375; 97110; 97162; 97166; 97530; 97535; 99285-25; C9113; G0480; J0360; J0690; J1650; J2060; J2270; J2405; J3475; J3480; J7030; J7050; J7120; P9612

== ENCOUNTER 2018-12-11 12:08 | Inpatient (IN) | payer OTHER ==
[~2018-12-11] VITALS: Ht 152.4 cm; Wt 90.6 kg
[~2018-12-11 12:08] MED LIST changes: +Advil200 M1 PO; +Bupropion Xl150 MG PO; +CLOB.05TO TOP; +Hydrocortiso453.6 G1 TOP; +KETO15TC TOP; +METF500 PO
--- NOTE | 2018-12-14 07:26 | NUR ---
Ambulatory in Day Surgery History, Chart, Medications and Allergies reviewed before start of procedure.Patient confirms NPO status and agrees with scheduled surgery. Patient reports completing Chlorhexadine shower X2 prior to admission to hospital.Surgical site prepped with 2% Chlorhexidine cloth wipe. Lungs clear T/O to Auscultation.
--- NOTE | 2018-12-14 16:03 | NUR ---
POST OP: REPORT RECIEVED FROM DIALYSIS RN DAVE. PT TO UNIT AT ABOUT 1225. UPON ASSESSMENT PT IS IN NO VISABLE DISTRESS, A/O, VSS. REPORTS NO PAIN, DRESSING AT L HIP CDI. ABLE TO SIT UP AND HAVE JELLO AND ICE CHIPS. WILL CTM.
--- NOTE | 2018-12-14 19:22 | NUR ---
SUMMARY: NO ACUTE CHANGE SINCE ARRIVED POST OP. PT MEDICATED FOR HIP PAIN PER EMAR. ABLE TO TOLERATE REG DIET, REPORTED NAUSEA X1. SURGICAL SITE WNL, NOW REPORTS FULL SENSATION TO L LEG. ABLE TO AMBULATE TO COMMODE AND VOID AND IS CURRENTLY SITTING IN CHAIR. PT REPORTS MILD DIZZINESS AT TIMES. NO ACUTE CONCERNS, REPORT GIVEN TO FARHAD STEELE.
[2018-12-15 04:54] LABS: BASOPHILS ABSOLUTE AUTO 0.05 K/mm3 (0.00-0.23); BASOPHILS PERCENT AUTO 1 % (0-2); EOSINOPHILS ABSOLUTE AUTO 0.36 K/mm3 (0.00-0.68); EOSINOPHILS PERCENT AUTO 4 % (0-6); Hematocrit 29.3 % (33.0-51.0); Hemoglobin 9.4 g/dL (11.5-16.0); IMMATURE GRAN ABSOLUTE AUTO 0.03 K/mm3 (0.00-0.10); IMMATURE GRAN PERCENT AUTO 0 % (0-1); LYMPHOCYTES ABSOLUTE AUTO 2.03 K/mm3 (0.84-5.20); LYMPHOCYTES PERCENT AUTO 23 % (21-46); MONOCYTES ABSOLUTE AUTO 0.67 K/mm3 (0.16-1.47); MONOCYTES PERCENT AUTO 7 % (4-13); Mean Corpuscular HGB Conc 32.1 g/dL (31.5-36.5); Mean Corpuscular Volume 94 fL (80-100); Mean Platelet Volume 9.9 fL (9.1-12.4); NEUTROPHILS ABSOLUTE AUTO 5.89 K/mm3 (1.96-9.15); NEUTROPHILS PERCENT AUTO 65 % (41-73); Platelet Count 297 K/mm3 (150-400); RDW Coefficient Variation 13.4 % (11.7-14.2); RDW Standard Deviation 46.1 fL (35.1-46.3); Red Blood Cell Count 3.13 M/mm3 (3.80-5.20); White Blood Cell Count 9.03 K/mm3 (4.00-11.30)
[2018-12-15 05:18] LABS: Anion Gap 4 mmol/L (6-16); Blood Urea Nitrogen 17 mg/dL (8-24); Bun/Creatinine Ratio 17.4 (12.0-20.0); CO2, Blood 29 mmol/L (21-32); Calcium, Blood 8.1 mg/dL (8.5-10.1); Chloride, Blood 104 mmol/L (98-108); Creatinine, Blood 0.98 mg/dL (0.40-1.00); Glomerular Filtration Rate >60 (60-); Glucose, Blood 124 mg/dL (70-99); Magnesium, Blood 1.8 mg/dL (1.6-2.4); Potassium, Blood 4.6 mmol/L (3.5-5.5); Sodium, Blood 137 mmol/L (136-145)
--- NOTE | 2018-12-15 08:13 | NUR ---
SUMMARY: POD [address] LOWRY[address] RASHID, VSS, HYPOTENSIVE THIS MORNING WITH MULTIPLE PRN PAIN MEDS ON BOARD. PT REMAINS A&O, PWD AND DENIES DIZZINESS. TOLERATING REG DIET AND MEDICATED PRN FOR NAUSEA IN CONJUNCTION WITH PRN PAIN MEDS. PT SLEPT WELL LATER IN SHIFT AND WAS 1 PERSON MODERATE ASSIST TO BSC WITH GB AND FWW. ANTICIPATE PT/OT LATER THIS DAY.
[2018-12-15] MEDS ORDERED: ACET500 PO (11:41)
[2018-12-15] MEDS ORDERED: OXYC5 PO (11:48)
[2018-12-15] MEDS ORDERED: XARELTO15 MG PO (11:49)
--- NOTE | 2018-12-15 14:40 | NUR ---
DISCHARGE: PT CLEARED BY PHYSICAL THERAPY. DISCHARGE PACKET PRINTED AND EDUCATION GIVEN. PT GIVEN AQUACEL DRESSINGS AND PAIN MED SCRIPT. PT AND CARE GIVERS VERBALIZED UNDERSTANDING. PT LEFT UNIT VIA WHEELCHAIR WITH DAE PICKETT AT ABOUT 1415
== END 2018-12-15 14:40 | disposition home or self-care (01) | DRG 470 ==
LOC: SURS 12-14 05:34 → PRE IP 12-14 07:30 → SURS 12-14 12:45
PROVIDERS: ADMIT Orthopaedic Surgery
PROC: 0SRB04A Replacement of Left Hip Joint with Ceramic on Polyethylene Synthetic Substitute, Uncemented, Open Approach (ICD-10-PCS; principal; 2018-12-14 07:30)
DX: M16.12 Unilateral primary osteoarthritis, left hip (principal); I10 Essential (primary) hypertension; J44.9 Chronic obstructive pulmonary disease, unspecified; G47.33 Obstructive sleep apnea (adult) (pediatric); E66.9 Obesity, unspecified; Z86.73 Personal history of transient ischemic attack (TIA), and cerebral infarction without residual deficits; Z98.891 History of uterine scar from previous surgery; Z68.38 Body mass index [BMI] 38.0-38.9, adult
CPT/HCPCS: 36415; 71046; 72170; 80048; 83735; 85025; 88300; 94640; 94760; 97110; 97116; 97162; 97530; C1776; J0171; J0690; J0735; J1170; J1885; J2250; J2405; J2704; J2795; J3010; J7120

== ENCOUNTER 2020-02-09 06:15 | Day surgery (SDC) | payer OTHER ==
[~2020-02-09] VITALS: Ht 160 cm; Wt 82.6 kg
[~2020-02-09 06:15] MED LIST changes: +ACET500 PO; +OXYC5 PO; +TIOT18 INH; +XARELTO15 MG PO
--- NOTE | 2020-02-09 07:12 | NUR ---
02/09/20 0712 Emily Bernabe CALL LIGHT WITHIN REACH.
--- NOTE | 2020-02-09 08:55 | NUR ---
02/09/20 0855 Sheila García PATIENT INTUBATED ON GURNEY THEN TRANSFERED TO SHERMAN FRAME. KNEES FLEXE WITH PILLOW AND GEL CHEST BOLSTER. GEL PAD UNDER KNEES. GEL UNDER SEAT BELT. ARMS POSITIONED ON EGGCRATE PADDING. FOAM FACE PILLOW. POSITION CHECKED AND VERIFIED BY BOTH SURGEON AND ANESTHESIA.
--- NOTE | 2020-02-09 13:10 | NUR ---
02/09/20 1310 Laverne,Swathi OXYCODONE 5MG GIVEN FOR CO MILD "PULLING " PAIN AT INCISION SITE. ASSISTED TO DRESS. DISCHARGE INSTRUCTIONS GIVEN. STATES UNDERSTANDS
== END 2020-02-09 13:25 | disposition home or self-care (01) ==
LOC: ORSCSDS 06:15
PROVIDERS: Orthopaedic Surgery
PROC: 01NB0ZZ Release Lumbar Nerve, Open Approach (ICD-10-PCS; principal; 2020-02-09 07:30)
DX: M48.062 Spinal stenosis, lumbar region with neurogenic claudication (principal); M54.16 Radiculopathy, lumbar region; J44.9 Chronic obstructive pulmonary disease, unspecified; I10 Essential (primary) hypertension; G47.33 Obstructive sleep apnea (adult) (pediatric); Z79.51 Long term (current) use of inhaled steroids; Z79.899 Other long term (current) drug therapy; Z87.891 Personal history of nicotine dependence
CPT/HCPCS: J0171; J0330; J0690; J2250; J2405; J2704; J3010; J3370; J7120

== ENCOUNTER → 2020-07-18 | Outpatient (CLI) | payer OTHER | END | disposition home or self-care (01) | LOC: LAB SHORT 13:06 | DX: R93.89 Abnormal findings on diagnostic imaging of other specified body structures (principal) | CPT/HCPCS: 88305 ==

== ENCOUNTER → 2020-07-18 | Outpatient (CLI) | payer OTHER ==
[2020-07-20 10:07] LABS: HPV 16 Negative (Negative); HPV 18 Negative (Negative); HPV OTHER HR TYPES Negative (Negative)
== END | disposition home or self-care (01) ==
LOC: LAB SHORT 11:53
PROVIDERS: Obstetrics & Gynecology
DX: Z01.411 Encounter for gynecological examination (general) (routine) with abnormal findings (principal)
CPT/HCPCS: 87624; G0123

== ENCOUNTER 2020-08-24 12:54 | Day surgery (SDC) | payer OTHER ==
[~2020-08-24] VITALS: Ht 157.5 cm; Wt 78.4 kg
--- NOTE | 2020-08-24 13:12 | NUR ---
08/24/20 1312 Sirisha Zhu, RN CHARGING PREOP INFORMATION
--- NOTE | 2020-08-24 15:45 | NUR ---
08/24/20 1545 Sheila García 0CC NACL FLUID DEFICIT. SURGEON AWARE.
== END 2020-08-24 15:47 | disposition home or self-care (01) ==
LOC: ORSCSDS 12:54
DX: N85.00 Endometrial hyperplasia, unspecified (principal); K21.9 Gastro-esophageal reflux disease without esophagitis; F17.210 Nicotine dependence, cigarettes, uncomplicated; Z79.899 Other long term (current) drug therapy
CPT/HCPCS: 88305; J1100; J2250; J2370; J2405; J2704; J3010; J7120

== ENCOUNTER 2021-03-14 11:50 | Emergency (ER) | payer OTHER ==
[~2021-03-14] VITALS: Ht 160 cm; Wt 78.5 kg
[2021-03-14] MEDS ORDERED: METO50 PO (12:07)
[2021-03-14 12:17] LABS: BASOPHILS ABSOLUTE AUTO 0.07 K/mm3 (0.00-0.23); BASOPHILS PERCENT AUTO 1 % (0-2); EOSINOPHILS ABSOLUTE AUTO 0.31 K/mm3 (0.00-0.68); EOSINOPHILS PERCENT AUTO 4 % (0-6); Hematocrit 35.9 % (33.0-51.0); Hemoglobin 11.5 g/dL (11.5-16.0); IMMATURE GRAN ABSOLUTE AUTO 0.02 K/mm3 (0.00-0.10); IMMATURE GRAN PERCENT AUTO 0 % (0-1); LYMPHOCYTES ABSOLUTE AUTO 2.44 K/mm3 (0.84-5.20); LYMPHOCYTES PERCENT AUTO 31 % (21-46); MONOCYTES ABSOLUTE AUTO 0.49 K/mm3 (0.16-1.47); MONOCYTES PERCENT AUTO 6 % (4-13); Mean Corpuscular Volume 87 fL (80-100); Mean Platelet Volume 8.9 fL (9.1-12.4); NEUTROPHILS ABSOLUTE AUTO 4.49 K/mm3 (1.96-9.15); NEUTROPHILS PERCENT AUTO 57 % (41-73); Platelet Count 419 K/mm3 (150-400); RDW Coefficient Variation 15.2 % (11.7-14.2); RDW Standard Deviation 49.1 fL (35.1-46.3); Red Blood Cell Count 4.11 M/mm3 (3.80-5.20); White Blood Cell Count 7.82 K/mm3 (4.00-11.30)
[2021-03-14 12:41] LABS: Alanine Aminotransfer (ALT/SGP 16 U/L (12-78); Albumin, Blood 2.9 g/dL (3.4-5.0); Albumin/Globulin Ratio 0.6 (0.8-1.8); Alk Phos 86 U/L (50-136); Anion Gap 7 mmol/L (6-16); Aspartate Aminotrans (AST/SGOT 10 U/L (12-37); Bilirubin, Total 0.2 mg/dL (0.1-1.0); Blood Urea Nitrogen 12 mg/dL (8-24); Bun/Creatinine Ratio 15.8 (12.0-20.0); CO2, Blood 28 mmol/L (21-32); Calcium, Blood 9.2 mg/dL (8.5-10.1); Chloride, Blood 99 mmol/L (98-108); Creatinine, Blood 0.76 mg/dL (0.40-1.00); Globulin, Blood 4.5 g/dL (2.2-4.0); Glomerular Filtration Rate >60 (60-); Glucose, Blood 123 mg/dL (70-99); Potassium, Blood 4.3 mmol/L (3.5-5.5); Sodium, Blood 134 mmol/L (136-145); Total Protein, Blood 7.4 g/dL (6.4-8.2); Troponin I <0.015 ng/mL (0.000-0.040)
== END 2021-03-14 14:23 | disposition home or self-care (01) ==
LOC: ER 11:50
PROVIDERS: Emergency Medicine
DX: I10 Essential (primary) hypertension (principal); R07.9 Chest pain, unspecified; J43.9 Emphysema, unspecified; K21.9 Gastro-esophageal reflux disease without esophagitis; Z86.73 Personal history of transient ischemic attack (TIA), and cerebral infarction without residual deficits; F17.200 Nicotine dependence, unspecified, uncomplicated; Z88.6 Allergy status to analgesic agent; Z88.8 Allergy status to other drugs, medicaments and biological substances; Z79.899 Other long term (current) drug therapy
CPT/HCPCS: 71045; 80053; 84484; 85025; 93005; 93010; 96374; 99285-25

== ENCOUNTER → 2021-04-14 | Outpatient (CLI) | payer OTHER ==
[~2021-04-14] MED LIST changes: +METO50 PO
== END | disposition home or self-care (01) ==
LOC: LAB SHORT 14:33
DX: Z20.822 Contact with and (suspected) exposure to COVID-19 (principal)
CPT/HCPCS: U0003

== ENCOUNTER → 2021-11-15 | Outpatient (CLI) | payer OTHER ==
[2021-11-15 15:03] LABS: BASOPHILS ABSOLUTE AUTO 0.07 K/mm3 (0.00-0.23); BASOPHILS PERCENT AUTO 1 % (0-2); EOSINOPHILS PERCENT AUTO 2 % (0-6); Hematocrit 32.3 % (33.0-51.0); Hemoglobin 10.8 g/dL (11.5-16.0); IMMATURE GRAN ABSOLUTE AUTO 0.03 K/mm3 (0.00-0.10); IMMATURE GRAN PERCENT AUTO 0 % (0-1); LYMPHOCYTES ABSOLUTE AUTO 2.53 K/mm3 (0.84-5.20); LYMPHOCYTES PERCENT AUTO 28 % (21-46); MONOCYTES ABSOLUTE AUTO 0.48 K/mm3 (0.16-1.47); MONOCYTES PERCENT AUTO 5 % (4-13); Mean Corpuscular HGB 29.7 pg (26.0-34.0); Mean Corpuscular HGB Conc 33.4 g/dL (31.5-36.5); Mean Corpuscular Volume 89 fL (80-100); Mean Platelet Volume 8.8 fL (9.1-12.4); NEUTROPHILS ABSOLUTE AUTO 5.79 K/mm3 (1.96-9.15); NEUTROPHILS PERCENT AUTO 64 % (41-73); Platelet Count 448 K/mm3 (150-400); RDW Coefficient Variation 13.2 % (11.7-14.2); RDW Standard Deviation 43.3 fL (35.1-46.3); Red Blood Cell Count 3.64 M/mm3 (3.80-5.20)
[2021-11-15 15:57] LABS: Albumin, Blood 3.6 g/dL (3.4-5.0); Albumin/Globulin Ratio 0.9 (0.8-1.8); Bilirubin, Total 0.3 mg/dL (0.1-1.0); Bun/Creatinine Ratio 12.8 (12.0-20.0); Calcium, Blood 9.3 mg/dL (8.5-10.1); Creatinine, Blood 0.86 mg/dL (0.40-1.00); Globulin, Blood 4.2 g/dL (2.2-4.0); Potassium, Blood 3.9 mmol/L (3.5-5.5); Total Protein, Blood 7.8 g/dL (6.4-8.2)
== END | disposition home or self-care (01) ==
LOC: LAB 13:32 → LAB SHORT 13:32
PROVIDERS: Internal Medicine
DX: R73.03 Prediabetes (principal)
CPT/HCPCS: 80053; 83036; 85025

== ENCOUNTER → 2022-09-03 | Outpatient (CLI) | payer OTHER ==
[2022-09-03 15:57] LABS: BASOPHILS ABSOLUTE AUTO 0.11 K/mm3 (0.00-0.23); BASOPHILS PERCENT AUTO 1 % (0-2); EOSINOPHILS PERCENT AUTO 5 % (0-6); Hematocrit 30.3 % (33.0-51.0); IMMATURE GRAN ABSOLUTE AUTO 0.04 K/mm3 (0.00-0.10); IMMATURE GRAN PERCENT AUTO 0 % (0-1); LYMPHOCYTES ABSOLUTE AUTO 3.03 K/mm3 (0.84-5.20); LYMPHOCYTES PERCENT AUTO 29 % (21-46); MONOCYTES ABSOLUTE AUTO 0.69 K/mm3 (0.16-1.47); MONOCYTES PERCENT AUTO 7 % (4-13); Mean Corpuscular HGB 28.5 pg (26.0-34.0); Mean Corpuscular Volume 86 fL (80-100); Mean Platelet Volume 9.3 fL (9.1-12.4); NEUTROPHILS ABSOLUTE AUTO 6.19 K/mm3 (1.96-9.15); NEUTROPHILS PERCENT AUTO 59 % (41-73); Platelet Count 466 K/mm3 (150-400); RDW Standard Deviation 44.1 fL (35.1-46.3); Red Blood Cell Count 3.51 M/mm3 (3.80-5.20); White Blood Cell Count 10.56 K/mm3 (4.00-11.30)
[2022-09-03 16:50] LABS: Free Thyroxine 1.34 ng/dL (0.70-1.60); Thyroid Stimulating Hormone 0.829 uIU/mL (0.360-4.800); Triiodothyronine, Free 3.4 pg/mL (2.18-3.98)
[2022-09-03 16:51] LABS: Albumin, Blood 3.2 g/dL (3.4-5.0); Albumin/Globulin Ratio 0.7 (0.8-1.8); Bilirubin, Total 0.1 mg/dL (0.1-1.0); Bun/Creatinine Ratio 13.8 (12.0-20.0); Calcium, Blood 8.7 mg/dL (8.5-10.1); Creatinine, Blood 0.87 mg/dL (0.40-1.00); Globulin, Blood 4.8 g/dL (2.2-4.0)
== END | disposition home or self-care (01) ==
LOC: LAB 15:09 → LAB SHORT 15:09
PROVIDERS: Family Medicine
DX: R13.10 Dysphagia, unspecified (principal); I10 Essential (primary) hypertension; R61 Generalized hyperhidrosis; R89.1 Abnormal level of hormones in specimens from other organs, systems and tissues
CPT/HCPCS: 80053; 84439; 84443; 84481; 85025

== ENCOUNTER 2022-10-02 12:49 | Day surgery (SDC) | payer OTHER ==
[~2022-10-02] VITALS: Ht 157.5 cm; Wt 92.0 kg
[2022-10-02 15:25] VITALS: BP 128/78
== END 2022-10-02 15:33 | disposition home or self-care (01) ==
LOC: ORSCSDS 12:49
PROVIDERS: Student in an Organized Health Care Education/Training Program
PROC: 0DBL8ZX Excision of Transverse Colon, Via Natural or Artificial Opening Endoscopic, Diagnostic (ICD-10-PCS; principal; 2022-10-02 15:00)
PROC: 0DB58ZX Excision of Esophagus, Via Natural or Artificial Opening Endoscopic, Diagnostic (ICD-10-PCS; principal; 2022-10-02 15:00)
PROC: 0DBM8ZX Excision of Descending Colon, Via Natural or Artificial Opening Endoscopic, Diagnostic (ICD-10-PCS; principal; 2022-10-02 15:00)
PROC: 0DB78ZX Excision of Stomach, Pylorus, Via Natural or Artificial Opening Endoscopic, Diagnostic (ICD-10-PCS; principal; 2022-10-02 15:00)
PROC: 0DBE8ZX Excision of Large Intestine, Via Natural or Artificial Opening Endoscopic, Diagnostic (ICD-10-PCS; principal; 2022-10-02 15:00)
PROC: 0DB98ZX Excision of Duodenum, Via Natural or Artificial Opening Endoscopic, Diagnostic (ICD-10-PCS; principal; 2022-10-02 15:00)
DX: R19.5 Other fecal abnormalities (principal); R13.10 Dysphagia, unspecified; R19.7 Diarrhea, unspecified; B37.81 Candidal esophagitis; K63.5 Polyp of colon; D50.9 Iron deficiency anemia, unspecified; J44.9 Chronic obstructive pulmonary disease, unspecified; E03.9 Hypothyroidism, unspecified; E78.5 Hyperlipidemia, unspecified; F31.81 Bipolar II disorder; F17.210 Nicotine dependence, cigarettes, uncomplicated; J84.9 Interstitial pulmonary disease, unspecified; I10 Essential (primary) hypertension; K21.9 Gastro-esophageal reflux disease without esophagitis; Z86.73 Personal history of transient ischemic attack (TIA), and cerebral infarction without residual deficits; Z79.899 Other long term (current) drug therapy
CPT/HCPCS: 82947; 88305; 88342; J0461; J2001; J2405; J2704; J7120; Q9968

== ENCOUNTER → 2023-01-17 | Outpatient (CLI) | payer OTHER ==
[~2023-01-17] MED LIST changes: +PRED20 PO
[2023-01-17 14:38] LABS: Bun/Creatinine Ratio 15.5 (12.0-20.0); Calcium, Blood 8.9 mg/dL (8.5-10.1); Creatinine, Blood 0.77 mg/dL (0.40-1.00); Potassium, Blood 4.4 mmol/L (3.5-5.5)
== END | disposition home or self-care (01) ==
LOC: LAB 12:42 → LAB SHORT 12:42
PROVIDERS: Family Medicine
DX: E87.1 Hypo-osmolality and hyponatremia (principal)
CPT/HCPCS: 80048

== ENCOUNTER 2023-01-19 03:27 | Emergency (ER) | payer OTHER ==
[~2023-01-19] VITALS: Ht 160 cm; Wt 104.3 kg
[~2023-01-19 03:27] MED LIST changes: -PRED20 PO
[2023-01-19 04:41] LABS: BASOPHILS ABSOLUTE AUTO 0.02 K/mm3 (0.00-0.23); BASOPHILS PERCENT AUTO 0 % (0-2); EOSINOPHILS ABSOLUTE AUTO 0.02 K/mm3 (0.00-0.68); EOSINOPHILS PERCENT AUTO 0 % (0-6); Hematocrit 36.6 % (33.0-51.0); Hemoglobin 12.2 g/dL (11.5-16.0); IMMATURE GRAN ABSOLUTE AUTO 0.06 K/mm3 (0.00-0.10); IMMATURE GRAN PERCENT AUTO 0 % (0-1); LYMPHOCYTES ABSOLUTE AUTO 0.57 K/mm3 (0.84-5.20); LYMPHOCYTES PERCENT AUTO 4 % (21-46); MONOCYTES ABSOLUTE AUTO 0.67 K/mm3 (0.16-1.47); MONOCYTES PERCENT AUTO 4 % (4-13); Mean Corpuscular HGB 32.1 pg (26.0-34.0); Mean Corpuscular HGB Conc 33.3 g/dL (31.5-36.5); Mean Corpuscular Volume 96 fL (80-100); NEUTROPHILS ABSOLUTE AUTO 14.97 K/mm3 (1.96-9.15); NEUTROPHILS PERCENT AUTO 92 % (41-73); Platelet Count 290 K/mm3 (150-400); RDW Coefficient Variation 15.4 % (11.7-14.2); RDW Standard Deviation 54.6 fL (35.1-46.3); White Blood Cell Count 16.31 K/mm3 (4.00-11.30)
[2023-01-19 05:03] LABS: Albumin/Globulin Ratio 0.7 (0.8-1.8); Bilirubin, Total 0.5 mg/dL (0.1-1.0); Bun/Creatinine Ratio 15.9 (12.0-20.0); Calcium, Blood 8.8 mg/dL (8.5-10.1); Creatinine, Blood 0.76 mg/dL (0.40-1.00); Globulin, Blood 4.4 g/dL (2.2-4.0); Potassium, Blood 4.5 mmol/L (3.5-5.5); Total Protein, Blood 7.4 g/dL (6.4-8.2)
[2023-01-19 06:03] LABS: Source, Urine Clean Catch
[2023-01-19 06:05] LABS: Bilirubin, Urine Neg (Neg); Blood, Urine 1+ (Neg); Glucose Qualitative, Urine Neg (Neg); Ketones, Urine Neg (Neg); Leukocyte Esterase, Urine 1+ (Neg); Nitrite, Urine Pos (Neg); Protein, Urine 1+ (Neg); Specific Gravity, Urine 1.015 (1.003-1.022); Urobilinogen, Urine NORM (Normal)
[2023-01-19 06:08] LABS: Appearance, Urine Cloudy (Clear); Color, Urine Yellow (P-Yellow)
[2023-01-19 06:12] LABS: Bacteria Many /hpf; Red Blood Cells, Urine 0-2 /hpf (0-2); Squamous Epithelial Cells Mod /hpf (Few)
[2023-01-19 06:56] LABS: Influenza A, PCR NEGATIVE (NEGATIVE); Influenza B, PCR NEGATIVE (NEGATIVE); Resp Syncytial Virus, PCR NEGATIVE (NEGATIVE)
[2023-01-19 07:01] LABS: SARS-Cov-2 (COVID-19) PCR, MMC POSITIVE (NEGATIVE)
[2023-01-19] MEDS ORDERED: PRED20 PO (08:57)
[2023-01-19 10:00] VITALS: BP 139/80
== END 2023-01-19 10:19 | disposition home or self-care (01) ==
LOC: ER 03:27
PROVIDERS: Student in an Organized Health Care Education/Training Program
DX: U07.1 COVID-19 (principal); J44.1 Chronic obstructive pulmonary disease with (acute) exacerbation; Z88.8 Allergy status to other drugs, medicaments and biological substances; Z88.6 Allergy status to analgesic agent; Z79.899 Other long term (current) drug therapy; I10 Essential (primary) hypertension; K21.9 Gastro-esophageal reflux disease without esophagitis; F17.200 Nicotine dependence, unspecified, uncomplicated
CPT/HCPCS: 0241U; 36415; 71046; 80053; 81001; 83605; 83880; 84145; 84484; 85025; 87040; 87077; 87086; 87186; 93005; 93010; 94640; 94644; 94664; 96361; 96374; 99285-25; A9270; J1885; J7030; J7512

== ENCOUNTER 2023-02-03 11:19 | Inpatient (IN) | payer OTHER ==
[~2023-02-03] VITALS: Ht 154.9 cm; Wt 90.2 kg
[~2023-02-03 11:19] MED LIST changes: +PRED20 PO
[2023-02-03 12:17] LABS: BASOPHILS ABSOLUTE AUTO 0.07 K/mm3 (0.00-0.23); BASOPHILS PERCENT AUTO 0 % (0-2); EOSINOPHILS ABSOLUTE AUTO 0.07 K/mm3 (0.00-0.68); EOSINOPHILS PERCENT AUTO 0 % (0-6); Hematocrit 37.6 % (33.0-51.0); Hemoglobin 12.7 g/dL (11.5-16.0); IMMATURE GRAN PERCENT AUTO 1 % (0-1); LYMPHOCYTES ABSOLUTE AUTO 1.81 K/mm3 (0.84-5.20); LYMPHOCYTES PERCENT AUTO 10 % (21-46); MONOCYTES ABSOLUTE AUTO 1.58 K/mm3 (0.16-1.47); MONOCYTES PERCENT AUTO 8 % (4-13); Mean Corpuscular HGB 32.6 pg (26.0-34.0); Mean Corpuscular HGB Conc 33.8 g/dL (31.5-36.5); Mean Corpuscular Volume 96 fL (80-100); Mean Platelet Volume 9.6 fL (9.1-12.4); NEUTROPHILS ABSOLUTE AUTO 15.03 K/mm3 (1.96-9.15); NEUTROPHILS PERCENT AUTO 80 % (41-73); Platelet Count 399 K/mm3 (150-400); RDW Coefficient Variation 13.7 % (11.7-14.2); RDW Standard Deviation 48.8 fL (35.1-46.3); White Blood Cell Count 18.76 K/mm3 (4.00-11.30)
[2023-02-03 12:29] LABS: Albumin, Blood 3.3 g/dL (3.4-5.0); Albumin/Globulin Ratio 0.7 (0.8-1.8); Calcium, Blood 9.2 mg/dL (8.5-10.1); Creatinine, Blood 0.86 mg/dL (0.40-1.00); Globulin, Blood 4.6 g/dL (2.2-4.0); Total Protein, Blood 7.9 g/dL (6.4-8.2)
[2023-02-03 13:11] LABS: Base Excess Venous 7.3 mmol/L; Bicarbonate Venous 30.2 mmol/L (24.0-30.0); PCO2 Venous 45.2 mmHg (38-42); pH Blood Venous 7.45 (7.34-7.37)
[2023-02-03 13:47] LABS: Source, Urine Straight Cath
[2023-02-03 13:53] LABS: Appearance, Urine Hazy (Clear); Bilirubin, Urine Neg (Neg); Blood, Urine 1+ (Neg); Color, Urine Yellow (P-Yellow); Glucose Qualitative, Urine Neg (Neg); Ketones, Urine Neg (Neg); Leukocyte Esterase, Urine Neg (Neg); Nitrite, Urine Pos (Neg); Protein, Urine Neg (Neg); Urobilinogen, Urine 1+ (Normal)
[2023-02-03 14:02] LABS: Bacteria Many /hpf; Red Blood Cells, Urine 0-2 /hpf (0-2); Squamous Epithelial Cells Rare /hpf (Few)
[2023-02-03 20:03] VITALS: BP 159/76
[2023-02-04 04:00] VITALS: BP 150/84
--- NOTE | 2023-02-04 04:47 | NUR ---
NOC SHIFT SUMMARY: PT IS 10-12 DAYS STATUS POST COVID POSITIVE RESULT. PATIENT IS ALERT TO SELF ONLY. PICTURES IN THE CHART THAT NEED CONSENT SIGNED BY DAUGHTER. NO C/O PAIN. ON SOLU-MEDROL. TAKES PILLS WHOLE WITH WATER. PUREWICK IN PLACE.
[2023-02-04 06:44] LABS: BASOPHILS ABSOLUTE AUTO 0.03 K/mm3 (0.00-0.23); BASOPHILS PERCENT AUTO 0 % (0-2); EOSINOPHILS PERCENT AUTO 0 % (0-6); Hematocrit 37.1 % (33.0-51.0); Hemoglobin 12.3 g/dL (11.5-16.0); IMMATURE GRAN ABSOLUTE AUTO 0.16 K/mm3 (0.00-0.10); IMMATURE GRAN PERCENT AUTO 1 % (0-1); LYMPHOCYTES PERCENT AUTO 5 % (21-46); MONOCYTES ABSOLUTE AUTO 0.13 K/mm3 (0.16-1.47); MONOCYTES PERCENT AUTO 1 % (4-13); Mean Corpuscular HGB 32.5 pg (26.0-34.0); Mean Corpuscular HGB Conc 33.2 g/dL (31.5-36.5); Mean Corpuscular Volume 98 fL (80-100); Mean Platelet Volume 9.4 fL (9.1-12.4); NEUTROPHILS ABSOLUTE AUTO 12.47 K/mm3 (1.96-9.15); NEUTROPHILS PERCENT AUTO 92 % (41-73); Platelet Count 350 K/mm3 (150-400); RDW Coefficient Variation 13.2 % (11.7-14.2); RDW Standard Deviation 47.4 fL (35.1-46.3); Red Blood Cell Count 3.79 M/mm3 (3.80-5.20); White Blood Cell Count 13.49 K/mm3 (4.00-11.30)
[2023-02-04 07:13] LABS: Albumin, Blood 2.8 g/dL (3.4-5.0); Albumin/Globulin Ratio 0.6 (0.8-1.8); Bilirubin, Total 0.6 mg/dL (0.1-1.0); Bun/Creatinine Ratio 19.7 (12.0-20.0); Calcium, Blood 8.6 mg/dL (8.5-10.1); Creatinine, Blood 0.71 mg/dL (0.40-1.00); Globulin, Blood 4.8 g/dL (2.2-4.0); Magnesium, Blood 1.8 mg/dL (1.6-2.4); Potassium, Blood 3.8 mmol/L (3.5-5.5); Total Protein, Blood 7.6 g/dL (6.4-8.2)
[2023-02-04 07:25] VITALS: BP 146/71
[2023-02-04 15:42] VITALS: BP 135/64
--- NOTE | 2023-02-04 18:12 | NUR ---
PT A&OX3. PT LESS CONFUSED TODAY. PT IS ABLE TO RECALL WHY SHE IS HERE IN THE HOSPITAL AND THE EVENTS THAT BROUGHT HER IN. PT DENIED FEELING SOB TODAY AND WAS ABLE TO WORK WITH PHYSICAL THEAPY AND OT. TOLERATED WELL. SPEACH THERAPY ALSO EVALUATED PT TODAY. NO C/O PAIN. SON WAS AT BEDSIDE FOR A COUPLE HOURS IN AFTERNOON. CONTINUING ABX TX. VSS. BED IN LOWEST POSITION AND CALL LIGHT IN REACH.
[2023-02-04 20:35] VITALS: BP 130/74
[2023-02-05 02:48] VITALS: BP 152/77
--- NOTE | 2023-02-05 04:32 | NUR ---
NOC SHIFT SUMMARY: ALERT AND ORIENTED X4. C/O NAUSEA, ZOFRAN GIVEN WITH GOOD RELIEF. UP WITH WALKER AND SBA TO BATHROOM. NO C/O PAIN. NEW IV IN RIGHT ARM. HERE FOR A COUPLE MORE DAYS OF IV ANTIBIOTICS. PLAN IS FOR HOME WITH FAMILY AND HOME HEALTH.
[2023-02-05 05:14] LABS: BASOPHILS ABSOLUTE AUTO 0.04 K/mm3 (0.00-0.23); BASOPHILS PERCENT AUTO 0 % (0-2); EOSINOPHILS ABSOLUTE AUTO 0.03 K/mm3 (0.00-0.68); EOSINOPHILS PERCENT AUTO 0 % (0-6); Hematocrit 33.9 % (33.0-51.0); Hemoglobin 11.4 g/dL (11.5-16.0); IMMATURE GRAN ABSOLUTE AUTO 0.28 K/mm3 (0.00-0.10); IMMATURE GRAN PERCENT AUTO 1 % (0-1); LYMPHOCYTES ABSOLUTE AUTO 0.95 K/mm3 (0.84-5.20); LYMPHOCYTES PERCENT AUTO 4 % (21-46); MONOCYTES ABSOLUTE AUTO 0.71 K/mm3 (0.16-1.47); MONOCYTES PERCENT AUTO 3 % (4-13); Mean Corpuscular HGB 32.2 pg (26.0-34.0); Mean Corpuscular HGB Conc 33.6 g/dL (31.5-36.5); Mean Corpuscular Volume 96 fL (80-100); Mean Platelet Volume 9.5 fL (9.1-12.4); NEUTROPHILS ABSOLUTE AUTO 23.57 K/mm3 (1.96-9.15); NEUTROPHILS PERCENT AUTO 92 % (41-73); Platelet Count 385 K/mm3 (150-400); RDW Coefficient Variation 13.3 % (11.7-14.2); Red Blood Cell Count 3.54 M/mm3 (3.80-5.20); White Blood Cell Count 25.58 K/mm3 (4.00-11.30)
[2023-02-05 05:49] LABS: Calcium, Blood 8.8 mg/dL (8.5-10.1); Creatinine, Blood 0.8 mg/dL (0.40-1.00); Potassium, Blood 4.4 mmol/L (3.5-5.5)
[2023-02-05 05:58] LABS: BASOPHILS PERCENT MAN 0 % (0-2); EOSINOPHILS PERCENT MAN 0 % (0-6); LYMPHOCYTES ABSOLUTE MAN 0.51 K/mm3 (0.84-5.20); LYMPHOCYTES PERCENT MAN 2 % (21-46); MONOCYTES ABSOLUTE MAN 1.02 K/mm3 (0.16-1.47); MONOCYTES PERCENT MAN 4 % (4-13); NEUTROPHILS ABSOLUTE MAN 24.04 K/mm3 (1.96-9.15); SEG NEUTROPHILS PERCENT MAN 94 % (41-73); TOTAL CELLS COUNTED 100
[2023-02-05 07:33] VITALS: BP 134/73
[2023-02-05 15:21] VITALS: BP 156/76
--- NOTE | 2023-02-05 17:37 | NUR ---
DAYSHIFT SUMMARY Patient alert & oriented x4, no acute changes to patient status. Patient OOB in chair for all meals. IV Rocephin & solumedrol administred. Lungs sounds clear, 1lpm o2 NC. Infrequent dry cough. Guafenisen/codiene given for cough. Vitals stable. Will continue plan of care.
[2023-02-05 19:04] VITALS: BP 136/76
[2023-02-06 03:42] VITALS: BP 139/77
[2023-02-06 06:40] LABS: BASOPHILS ABSOLUTE AUTO 0.02 K/mm3 (0.00-0.23); BASOPHILS PERCENT AUTO 0 % (0-2); EOSINOPHILS ABSOLUTE AUTO 0.02 K/mm3 (0.00-0.68); EOSINOPHILS PERCENT AUTO 0 % (0-6); Hemoglobin 10.9 g/dL (11.5-16.0); IMMATURE GRAN ABSOLUTE AUTO 0.27 K/mm3 (0.00-0.10); IMMATURE GRAN PERCENT AUTO 1 % (0-1); LYMPHOCYTES ABSOLUTE AUTO 0.88 K/mm3 (0.84-5.20); LYMPHOCYTES PERCENT AUTO 4 % (21-46); MONOCYTES ABSOLUTE AUTO 0.77 K/mm3 (0.16-1.47); MONOCYTES PERCENT AUTO 4 % (4-13); Mean Corpuscular HGB 32.4 pg (26.0-34.0); Mean Corpuscular HGB Conc 34.1 g/dL (31.5-36.5); Mean Corpuscular Volume 95 fL (80-100); NEUTROPHILS ABSOLUTE AUTO 19.77 K/mm3 (1.96-9.15); NEUTROPHILS PERCENT AUTO 91 % (41-73); RDW Coefficient Variation 13.3 % (11.7-14.2); RDW Standard Deviation 47.1 fL (35.1-46.3); Red Blood Cell Count 3.36 M/mm3 (3.80-5.20); White Blood Cell Count 21.73 K/mm3 (4.00-11.30)
--- NOTE | 2023-02-06 06:49 | NUR ---
SHIFT SUMMARY PATIENT A/Ox4, DENIES PAIN NOR DISCOMFORT. DENIES SOB/DYSPNEA. SpO2 >90% ON 1L O2 NC. SBA WITH FWW TO BATHROOM. NO ACUTE CHANGES NOTED OVERNIGHT. BED LOCKED AND IN LOWEST POSITION, CALL LIGHT WITHIN REACH.
[2023-02-06 06:52] LABS: Calcium, Blood 8.4 mg/dL (8.5-10.1); Creatinine, Blood 0.65 mg/dL (0.40-1.00); Potassium, Blood 4.2 mmol/L (3.5-5.5)
[2023-02-06 07:00] LABS: Platelet Count 369 K/mm3 (150-400)
[2023-02-06 07:15] VITALS: BP 138/73
[2023-02-06] MEDS ORDERED: Keflex500 MG PO (12:40)
[2023-02-06] MEDS ORDERED: 1/2 NS 250ml250 ML (12:40)
--- NOTE | 2023-02-06 14:14 | NUR ---
PATIENT DISCHARGED TO HOME ACCOMPANIED BY FAMILY. TELEMETRY AND IV SALINE LOCK REMOVED WITHOUT INCIDENT. VERBALIZED UNDERSTANDING OF D/C INSTRUCTIONS. OFF UNIT VIA W/C AT 1335. NO PERSONAL BELONGINGS FOUND IN ROOM.
== END 2023-02-06 13:35 | disposition home health service (06) | DRG 871 ==
LOC: ER 11:19 → MEDS 14:42 → ERHOLD 14:42 → MEDS 19:49 → ENPENDDIS 02-06 12:02 → MEDS 02-06 13:35
PROVIDERS: Emergency Medicine; ADMIT Hospitalist
DX: A41.51 Sepsis due to Escherichia coli [E. coli] (principal); G93.41 Metabolic encephalopathy; G93.5 Compression of brain; N39.0 Urinary tract infection, site not specified; Z99.81 Dependence on supplemental oxygen; K21.9 Gastro-esophageal reflux disease without esophagitis; J43.9 Emphysema, unspecified; N32.0 Bladder-neck obstruction; I48.91 Unspecified atrial fibrillation; I10 Essential (primary) hypertension; R65.20 Severe sepsis without septic shock; F41.9 Anxiety disorder, unspecified; Z86.16 Personal history of COVID-19; Z88.8 Allergy status to other drugs, medicaments and biological substances; Z79.811 Long term (current) use of aromatase inhibitors; Z79.899 Other long term (current) drug therapy; Z79.51 Long term (current) use of inhaled steroids; Z86.73 Personal history of transient ischemic attack (TIA), and cerebral infarction without residual deficits; Z90.49 Acquired absence of other specified parts of digestive tract; Z96.652 Presence of left artificial knee joint; Z87.891 Personal history of nicotine dependence; Z85.828 Personal history of other malignant neoplasm of skin
CPT/HCPCS: 36415; 51701; 70450; 71045; 80048; 80053; 81001; 82803; 83605; 83735; 83880; 84484; 85025; 87040; 87077; 87086; 87186; 92610; 94640; 94664; 94760; 94762; 96365-59; 96375-59; 97110; 97162; 97166; 97530; 97535; 99285-25; A9270; J0696; J1650; J1940; J2920; J7050; J7626

== ENCOUNTER → 2023-02-27 | Outpatient (CLI) | payer OTHER ==
[~2023-02-27] MED LIST changes: +1/2 NS 250ml250 ML; +Keflex500 MG PO
[2023-02-27 16:16] LABS: Albumin/Globulin Ratio 0.8 (0.8-1.8); Bilirubin, Total 0.3 mg/dL (0.1-1.0); Bun/Creatinine Ratio 14.5 (12.0-20.0); Calcium, Blood 8.7 mg/dL (8.5-10.1); Creatinine, Blood 0.69 mg/dL (0.40-1.00)
== END ==
LOC: LAB SHORT 12:24 → LAB 12:24
PROVIDERS: Family Medicine
DX: R60.0 Localized edema (principal)
CPT/HCPCS: 80053

== ENCOUNTER → 2023-04-02 | Outpatient (CLI) | payer OTHER ==
[2023-04-04 09:13] LABS: A/G RATIO 1.1 (1.2-2.2); BILIRUBIN, TOTAL 0.3 mg/dL (0.0-1.2); CALCIUM, SERUM 9.2 mg/dL (8.7-10.3); CREATININE, SERUM 0.92 mg/dL (0.57-1.00); GLOBULIN, TOTAL 3.6 g/dL (1.5-4.5); POTASSIUM, SERUM 4.1 mmol/L (3.5-5.2); PROTEIN, TOTAL, SERUM 7.5 g/dL (6.0-8.5)
== END ==
LOC: LAB SHORT 18:54 → LAB 18:54
PROVIDERS: Family Medicine
DX: R60.0 Localized edema (principal)
CPT/HCPCS: 80053

== ENCOUNTER → 2023-05-02 | Outpatient (CLI) | payer OTHER | END | disposition home or self-care (01) | LOC: LAB SHORT 17:47 → LAB 17:47 | DX: R30.0 Dysuria (principal) | CPT/HCPCS: 87077; 87086; 87186 ==

== ENCOUNTER 2023-05-24 05:06 | Emergency (ER) | payer OTHER ==
[~2023-05-24] VITALS: Ht 160 cm; Wt 90.7 kg
[2023-05-24] MEDS ORDERED: AMLODIPINE BESY10 MG PO (05:42)
[2023-05-24] MEDS ORDERED: Ventolin/Prove6.7 GM INH (05:42)
[2023-05-24] MEDS ORDERED: FLUTICASONE-SA1 EAC9 INH (05:42)
[2023-05-24] MEDS ORDERED: ARIPIPRAZOLE10 M4 PO (05:43)
[2023-05-24] MEDS ORDERED: Phenergan25 M1 (05:43)
[2023-05-24] MEDS ORDERED: Clotrimazole-Be15 GM (05:45)
[2023-05-24] MEDS ORDERED: DICLOFENAC SODI50 GM TOP (05:46)
[2023-05-24] MEDS ORDERED: FUROSEMIDE20 MG PO (05:47)
[2023-05-24] MEDS ORDERED: OXYB5 (05:47)
[2023-05-24] MEDS ORDERED: TIZANIDINE HCL213 PO (05:48)
[2023-05-24] MEDS ORDERED: NYSTRIT TOP (05:48)
[2023-05-24] MEDS ORDERED: Triamcinolone A15 GM (05:49)
[2023-05-24] MEDS ORDERED: Cymbalta20 MG (05:50)
[2023-05-24 06:00] LABS: BASOPHILS ABSOLUTE AUTO 0.06 K/mm3 (0.00-0.23); BASOPHILS PERCENT AUTO 1 % (0-2); EOSINOPHILS PERCENT AUTO 3 % (0-6); Hematocrit 37.7 % (33.0-51.0); Hemoglobin 12.8 g/dL (11.5-16.0); IMMATURE GRAN ABSOLUTE AUTO 0.02 K/mm3 (0.00-0.10); IMMATURE GRAN PERCENT AUTO 0 % (0-1); LYMPHOCYTES ABSOLUTE AUTO 3.37 K/mm3 (0.84-5.20); LYMPHOCYTES PERCENT AUTO 39 % (21-46); MONOCYTES ABSOLUTE AUTO 0.52 K/mm3 (0.16-1.47); MONOCYTES PERCENT AUTO 6 % (4-13); Mean Corpuscular HGB 30.4 pg (26.0-34.0); Mean Corpuscular Volume 90 fL (80-100); Mean Platelet Volume 9.2 fL (9.1-12.4); NEUTROPHILS ABSOLUTE AUTO 4.45 K/mm3 (1.96-9.15); NEUTROPHILS PERCENT AUTO 51 % (41-73); Platelet Count 281 K/mm3 (150-400); RDW Coefficient Variation 12.6 % (11.7-14.2); RDW Standard Deviation 41.6 fL (35.1-46.3); Red Blood Cell Count 4.21 M/mm3 (3.80-5.20); White Blood Cell Count 8.72 K/mm3 (4.00-11.30)
[2023-05-24 06:13] LABS: Albumin, Blood 3.5 g/dL (3.4-5.0); Albumin/Globulin Ratio 0.9 (0.8-1.8); Bilirubin, Total 0.3 mg/dL (0.1-1.0); Bun/Creatinine Ratio 14.8 (12.0-20.0); Calcium, Blood 9.1 mg/dL (8.5-10.1); Creatinine, Blood 0.74 mg/dL (0.40-1.00); Globulin, Blood 3.9 g/dL (2.2-4.0); Potassium, Blood 3.7 mmol/L (3.5-5.5); Total Protein, Blood 7.4 g/dL (6.4-8.2)
[2023-05-24 06:42] VITALS: BP 180/84
== END 2023-05-24 07:07 | disposition home or self-care (01) ==
LOC: ER 05:06
PROVIDERS: Student in an Organized Health Care Education/Training Program
DX: I10 Essential (primary) hypertension (principal); F17.210 Nicotine dependence, cigarettes, uncomplicated; K21.9 Gastro-esophageal reflux disease without esophagitis; Z88.8 Allergy status to other drugs, medicaments and biological substances; Z88.6 Allergy status to analgesic agent; Z79.899 Other long term (current) drug therapy
CPT/HCPCS: 71046; 80053; 85025; 99284-25

== ENCOUNTER → 2023-09-02 | Outpatient (CLI) | payer OTHER ==
[~2023-09-02] MED LIST changes: +AMLODIPINE BESY10 MG PO; +ARIPIPRAZOLE10 M4 PO; +Clotrimazole-Be15 GM; +Cymbalta20 MG; +DICLOFENAC SODI50 GM TOP; +FLUTICASONE-SA1 EAC9 INH; +FUROSEMIDE20 MG PO; +NYSTRIT TOP; +OXYB5; +Phenergan25 M1; +TIZANIDINE HCL213 PO; +Triamcinolone A15 GM; +Ventolin/Prove6.7 GM INH
[2023-09-02 19:42] LABS: BASOPHILS ABSOLUTE AUTO 0.08 K/mm3 (0.00-0.23); BASOPHILS PERCENT AUTO 1 % (0-2); EOSINOPHILS ABSOLUTE AUTO 0.34 K/mm3 (0.00-0.68); EOSINOPHILS PERCENT AUTO 3 % (0-6); Hematocrit 35.7 % (33.0-51.0); Hemoglobin 11.8 g/dL (11.5-16.0); IMMATURE GRAN ABSOLUTE AUTO 0.03 K/mm3 (0.00-0.10); IMMATURE GRAN PERCENT AUTO 0 % (0-1); LYMPHOCYTES ABSOLUTE AUTO 3.43 K/mm3 (0.84-5.20); LYMPHOCYTES PERCENT AUTO 35 % (21-46); MONOCYTES ABSOLUTE AUTO 0.69 K/mm3 (0.16-1.47); MONOCYTES PERCENT AUTO 7 % (4-13); Mean Corpuscular HGB 31.7 pg (26.0-34.0); Mean Corpuscular HGB Conc 33.1 g/dL (31.5-36.5); Mean Corpuscular Volume 96 fL (80-100); Mean Platelet Volume 9.5 fL (9.1-12.4); NEUTROPHILS ABSOLUTE AUTO 5.36 K/mm3 (1.96-9.15); NEUTROPHILS PERCENT AUTO 54 % (41-73); Platelet Count 360 K/mm3 (150-400); RDW Coefficient Variation 13.8 % (11.7-14.2); RDW Standard Deviation 49.3 fL (35.1-46.3); Red Blood Cell Count 3.72 M/mm3 (3.80-5.20); White Blood Cell Count 9.93 K/mm3 (4.00-11.30)
[2023-09-02 20:13] LABS: Alanine Aminotransfer (ALT/SGP 17 U/L (12-78); Albumin, Blood 3.5 g/dL (3.4-5.0); Albumin/Globulin Ratio 0.9 (0.8-1.8); Alk Phos 47 U/L (50-136); Anion Gap 9 mmol/L (3-11); Aspartate Aminotrans (AST/SGOT 12 U/L (12-37); Bilirubin, Total 0.3 mg/dL (0.1-1.0); Blood Urea Nitrogen 14 mg/dL (8-24); Bun/Creatinine Ratio 15.5 (12.0-20.0); CHOL/HDL RATIO 4.3; CO2, Blood 29 mmol/L (21-32); Calcium, Blood 8.8 mg/dL (8.5-10.1); Chloride, Blood 102 mmol/L (98-108); Cholesterol 228 mg/dL (50-200); Glomerular Filtration Rate 68 (60-); Glucose, Blood 102 mg/dL (70-99); HDL Cholesterol 53 mg/dL (>39); LDL/HDL RATIO 2.2; Low Density Lipoprotein Chol 118 mg/dL (0-110); Potassium, Blood 3.9 mmol/L (3.5-5.5); Sodium, Blood 136 mmol/L (136-145); Total Protein, Blood 7.5 g/dL (6.4-8.2); Triglycerides 286 mg/dL (30-160); Very Low Density Lipoprot Chol 57 mg/dL (6-32)
== END ==
LOC: LAB SHORT 18:52 → LAB 18:52
PROVIDERS: Family Medicine
DX: I10 Essential (primary) hypertension (principal); J44.9 Chronic obstructive pulmonary disease, unspecified; E03.9 Hypothyroidism, unspecified; Z56.89 Other problems related to employment
CPT/HCPCS: 80053; 80061; 84443; 85025

== ENCOUNTER 2024-06-20 13:27 | Emergency (ER) | payer OTHER ==
[~2024-06-20] VITALS: Ht 160 cm; Wt 84.8 kg
[2024-06-20] MEDS ORDERED: FARXIGA10 MG PO (14:24)
[2024-06-20] MEDS ORDERED: NEURONTIN300 MG PO (14:26)
[2024-06-20] MEDS ORDERED: PRED5 PO (14:27)
[2024-06-20] MEDS ORDERED: WIXELA 250-501 EAC1 IH (14:29)
[2024-06-20] MEDS ORDERED: ROSUVASTATIN CA20 MG PO (14:29)
[2024-06-20] MEDS ORDERED: AMOCLA875 PO (14:37)
[2024-06-20] MEDS ORDERED: AZIT250 PO (14:37)
[2024-06-20 14:45] VITALS: BP 102/63
== END 2024-06-20 15:11 | disposition home or self-care (01) ==
LOC: ER 13:27
DX: I95.9 Hypotension, unspecified (principal); D72.829 Elevated white blood cell count, unspecified; N17.9 Acute kidney failure, unspecified; J44.9 Chronic obstructive pulmonary disease, unspecified; I10 Essential (primary) hypertension; R06.00 Dyspnea, unspecified; R53.83 Other fatigue; R82.998 Other abnormal findings in urine; Z87.01 Personal history of pneumonia (recurrent); Z87.891 Personal history of nicotine dependence; Z86.73 Personal history of transient ischemic attack (TIA), and cerebral infarction without residual deficits; Z79.51 Long term (current) use of inhaled steroids; Z79.899 Other long term (current) drug therapy; Z79.52 Long term (current) use of systemic steroids; Z88.6 Allergy status to analgesic agent; Z88.8 Allergy status to other drugs, medicaments and biological substances
CPT/HCPCS: 71046; 80053; 83880; 84484; 85025; 87077; 87086; 87186; 99284

== ENCOUNTER 2025-03-01 06:44 | Day surgery (SDC) | payer OTHER ==
[~2025-03-01] VITALS: Ht 160 cm; Wt 94.6 kg
[~2025-03-01 06:44] MED LIST changes: +AMOCLA875 PO; +Balanced Salt Epinephrine Irrigation Solution 500 mL IR SCH; +FARXIGA10 MG PO; +Moxifloxacin HCL 0.5 MG/0.1 ML 0.4MLSYR RIGHTEYE SCH; +NEURONTIN300 MG PO; +NS 500 ML IV ONE; +ONDA4ODT MM; +OXYACE7.5T PO; +PHENYLEPHRINE\\TROPICAMIDE\\TETRACAINE OPHTHALMIC DILATING SOLN RIGHTEYE PRN; +PRED5 PO; +Povidone-Iodine 450 DROP/30 ML Solution ONE; +Povidone-Iodine 450 DROP/30 ML Solution RIGHTEYE SCH; +ROSUVASTATIN CA20 MG PO; +Tetracaine HCl/Pf 0.5% Opth Soln 4 ml ONE; +WIXELA 250-501 EAC1 IH
--- NOTE | 2025-03-01 08:01 | NUR ---
03/01/25 0801 Sandra Wing PATIENT IS O2 DEPENDENT. PLACED ON 3L O2 VIA N/C UPON ADMISSION TO PREOP ROOM. PT IS ON 3L O2 AT ALL TIMES AT HOME. PT'S PERSONAL O2 CANSISTER TURNED OFF AND PLACED UNDER BED.
[2025-03-01] MEDS ORDERED: NS 500 ML IV ONE ×2 (08:20→08:26)
[2025-03-01] MEDS ORDERED: Midazolam HCl 1MG / ML 2ML Vial ONE (08:27)
[2025-03-01 09:24] VITALS: BP 145/74
== END 2025-03-01 09:26 | disposition home or self-care (01) ==
LOC: ORSCSDS 06:44
PROVIDERS: Student in an Organized Health Care Education/Training Program
PROC: 08RJ3JZ Replacement of Right Lens with Synthetic Substitute, Percutaneous Approach (ICD-10-PCS; principal; 2025-03-01 08:30)
DX: H25.813 Combined forms of age-related cataract, bilateral (principal); J44.89 Other specified chronic obstructive pulmonary disease; M79.7 Fibromyalgia; I10 Essential (primary) hypertension; K21.9 Gastro-esophageal reflux disease without esophagitis; F43.10 Post-traumatic stress disorder, unspecified; F90.9 Attention-deficit hyperactivity disorder, unspecified type; Z86.73 Personal history of transient ischemic attack (TIA), and cerebral infarction without residual deficits; Z79.899 Other long term (current) drug therapy; Z87.891 Personal history of nicotine dependence
CPT/HCPCS: J2003; J2250; J7040; V2632